=== PATIENT | female | born 1940 | race Caucasian/White ===

== ENCOUNTER 2019-06-24 16:16 | Observation (INO) | payer MEDICARE, OTHER ==
[~2019-06-24] VITALS: Ht 162.6 cm; Wt 81.7 kg
[~2019-06-24 16:16] MED LIST: ACET500 PO; ASPI81EC PO; ATOR20 PO; CLOP75 PO; HYDCHL12.5 PO; HYDCHL25 PO; METO25 PO; OCUVITE EYE +1 EACH; OMEG1CAP30 PO; OMEP40CA12 PO; PANT40
[2019-06-24 16:51] LABS: BASOPHILS ABSOLUTE AUTO 0.02 K/mm3 (0.00-0.23); BASOPHILS PERCENT AUTO 0 % (0-2); EOSINOPHILS ABSOLUTE AUTO 0.14 K/mm3 (0.00-0.68); EOSINOPHILS PERCENT AUTO 2 % (0-6); Hematocrit 37.3 % (33.0-51.0); Hemoglobin 12.6 g/dL (11.5-16.0); IMMATURE GRAN ABSOLUTE AUTO 0.01 K/mm3 (0.00-0.10); IMMATURE GRAN PERCENT AUTO 0 % (0-1); LYMPHOCYTES ABSOLUTE AUTO 1.88 K/mm3 (0.84-5.20); LYMPHOCYTES PERCENT AUTO 28 % (21-46); MONOCYTES ABSOLUTE AUTO 0.66 K/mm3 (0.16-1.47); MONOCYTES PERCENT AUTO 10 % (4-13); Mean Corpuscular HGB 30.8 pg (26.0-34.0); Mean Corpuscular HGB Conc 33.8 g/dL (31.5-36.5); Mean Corpuscular Volume 91 fL (80-100); Mean Platelet Volume 10.3 fL (9.1-12.4); NEUTROPHILS ABSOLUTE AUTO 4.13 K/mm3 (1.96-9.15); NEUTROPHILS PERCENT AUTO 61 % (41-73); Platelet Count 274 K/mm3 (150-400); RDW Coefficient Variation 12.9 % (11.7-14.2); Red Blood Cell Count 4.09 M/mm3 (3.80-5.20); White Blood Cell Count 6.84 K/mm3 (4.00-11.30)
[2019-06-24 17:05] LABS: International Normalized Ratio 0.97; Prothrombin Time Results 10.3 Sec (9.7-11.5)
[2019-06-24 17:15] LABS: Alanine Aminotransfer (ALT/SGP 23 U/L (12-78); Albumin/Globulin Ratio 1.2 (0.8-1.8); Alk Phos 81 U/L (50-136); Anion Gap 10 mmol/L (6-16); Aspartate Aminotrans (AST/SGOT 19 U/L (12-37); Bilirubin, Total 0.3 mg/dL (0.1-1.0); Blood Urea Nitrogen 17 mg/dL (8-24); CO2, Blood 23 mmol/L (21-32); Calcium, Blood 9.3 mg/dL (8.5-10.1); Chloride, Blood 104 mmol/L (98-108); Creatinine, Blood 0.89 mg/dL (0.40-1.00); Globulin, Blood 3.4 g/dL (2.2-4.0); Glomerular Filtration Rate >60 (60-); Glucose, Blood 120 mg/dL (70-99); Sodium, Blood 137 mmol/L (136-145); Total Protein, Blood 7.4 g/dL (6.4-8.2)
--- NOTE | 2019-06-24 21:19 | NUR ---
PT ARRIVED TO UNIT FROM ER VIA GURNEY. TRANSFERED SELF TO BED ON OWN POWER. PT [id number]. NO WEAKNESS NOTED. DENIES NEEDS AT THIS TIME. NPO PER DR ORDERS. Saba PALACIOS INFUSING FROM ER.
--- NOTE | 2019-06-24 22:35 | NUR ---
pt declines staff assist while ambulating. no weakness or defecits noted while ambulating. staff present while walking to bathroom
--- NOTE | 2019-06-25 04:05 | NUR ---
SHIFT SUMMARY OBS PATIENT FOR POSSIBLE TIA. PATIENT HAS SHOWN NO DEFICITS DURING SHIFT. FACE SYMETTRICAL AND NO UNILATERAL WEAKNESS NOTED. PATIENT HAS BEEN CONTINENT OF BLADDER. STBY ASSIST TO RESTROOM, CALLS APPROPRIATLY. NPO PER MD ORDERS. PATIENT ATTEMPTING TO GET EMPLOYEES TO GET HER ORANGE JUICE FREQUENTLY REMINDED PATIENT OF NPO ORDERS. K RIDERS INFUSING SINCE ARRIVAL FROM OR. PATIENT TOLERATING WELL WITH CONCURRENT NS INFUSING. PT RESTING IN BED DENIES FURTHER NEEDS DURING SHIFT. DENIES ANY PAIN.
[2019-06-25 07:06] LABS: BASOPHILS PERCENT AUTO 0 % (0-2); EOSINOPHILS PERCENT AUTO 2 % (0-6); Hemoglobin 11.7 g/dL (11.5-16.0); IMMATURE GRAN ABSOLUTE AUTO 0.01 K/mm3 (0.00-0.10); IMMATURE GRAN PERCENT AUTO 0 % (0-1); LYMPHOCYTES ABSOLUTE AUTO 1.09 K/mm3 (0.84-5.20); LYMPHOCYTES PERCENT AUTO 20 % (21-46); MONOCYTES ABSOLUTE AUTO 0.46 K/mm3 (0.16-1.47); MONOCYTES PERCENT AUTO 9 % (4-13); Mean Corpuscular HGB 29.9 pg (26.0-34.0); Mean Corpuscular HGB Conc 32.5 g/dL (31.5-36.5); Mean Corpuscular Volume 92 fL (80-100); Mean Platelet Volume 10.2 fL (9.1-12.4); NEUTROPHILS ABSOLUTE AUTO 3.68 K/mm3 (1.96-9.15); NEUTROPHILS PERCENT AUTO 69 % (41-73); Platelet Count 243 K/mm3 (150-400); RDW Coefficient Variation 12.9 % (11.7-14.2); RDW Standard Deviation 43.3 fL (35.1-46.3); Red Blood Cell Count 3.91 M/mm3 (3.80-5.20); White Blood Cell Count 5.34 K/mm3 (4.00-11.30)
[2019-06-25 07:28] LABS: Anion Gap 6 mmol/L (6-16); Blood Urea Nitrogen 12 mg/dL (8-24); Bun/Creatinine Ratio 17.2 (12.0-20.0); CO2, Blood 24 mmol/L (21-32); Calcium, Blood 8.3 mg/dL (8.5-10.1); Chloride, Blood 113 mmol/L (98-108); Glomerular Filtration Rate >60 (60-); Glucose, Blood 100 mg/dL (70-99); Sodium, Blood 143 mmol/L (136-145); Troponin I <0.015 ng/mL (0.000-0.040)
[2019-06-25] MEDS ORDERED: ACET325 PO (11:43)
[2019-06-25] MEDS ORDERED: Aggrenox Capsu1 EACH PO (11:43)
[2019-06-25] MEDS ORDERED: FAMO20 PO (11:44)
[2019-06-25] MEDS ORDERED: HYDR10 PO (11:45)
[2019-06-25] MEDS ORDERED: ONDA4ODT MM (11:46)
--- NOTE | 2019-06-25 14:42 | NUR ---
DISCHARGE DISCHARGED HOME AT APPROX 1415. PT AND FAMILY EDUCATED ON AND RECEIVED PRINTED DC INSTRUCTIONS AND VERB AN UNDERSTANDING. NEW RX FA[facility]ED OVER TO [facility] PER PT REQUEST. IV DC'D. PT LEFT WITH ALL PERSONAL BELONGINGS. TELE BOX RETURNED TO PCU.
[2019-08-21] MEDS ORDERED: CLOP75 PO (11:33)
[2019-08-21] MEDS ORDERED: Ocuvite Preser1 EACH PO (11:33)
== END 2019-06-25 14:15 | disposition home or self-care (01) ==
LOC: ER 16:16 → ERHOLD 16:17 → SURS 20:40
PROVIDERS: Physician Assistant; ADMIT Family Medicine
DX: G45.9 Transient cerebral ischemic attack, unspecified (principal); I16.0 Hypertensive urgency; I65.23 Occlusion and stenosis of bilateral carotid arteries; E87.6 Hypokalemia; E78.5 Hyperlipidemia, unspecified; I10 Essential (primary) hypertension; K21.9 Gastro-esophageal reflux disease without esophagitis; R47.1 Dysarthria and anarthria; Z79.82 Long term (current) use of aspirin; Z86.73 Personal history of transient ischemic attack (TIA), and cerebral infarction without residual deficits; Z79.02 Long term (current) use of antithrombotics/antiplatelets; Z79.899 Other long term (current) drug therapy; Z66 Do not resuscitate
CPT/HCPCS: 36415; 70450; 80048; 80053; 83735; 84443; 84484; 85025; 85610; 93005; 93010; 93306; 93880; 96361; 96365; 96366; 97110; 97161; 99285-25; G0378; J3480; J7030

== ENCOUNTER → 2021-02-19 | Outpatient (CLI) | payer MEDICARE, OTHER ==
[~2021-02-19] MED LIST changes: +ACET325 PO; +Aggrenox Capsu1 EACH PO; +FAMO20 PO; +HYDR10 PO; +ONDA4ODT MM; +Ocuvite Preser1 EACH PO
== END | disposition home or self-care (01) ==
LOC: LAB SHORT 09:29 → LAB 09:29
DX: B37.81 Candidal esophagitis (principal)
CPT/HCPCS: 87205

== ENCOUNTER 2022-02-18 17:34 | Emergency (ER) | payer MEDICARE, OTHER ==
[~2022-02-18] VITALS: Ht 162.6 cm; Wt 73.9 kg
[2022-02-18 18:09] LABS: BASOPHILS ABSOLUTE AUTO 0.01 K/mm3 (0.00-0.23); BASOPHILS PERCENT AUTO 0 % (0-2); EOSINOPHILS PERCENT AUTO 0 % (0-6); Hematocrit 34.9 % (33.0-51.0); Hemoglobin 12.3 g/dL (11.5-16.0); IMMATURE GRAN ABSOLUTE AUTO 0.04 K/mm3 (0.00-0.10); IMMATURE GRAN PERCENT AUTO 0 % (0-1); LYMPHOCYTES ABSOLUTE AUTO 0.73 K/mm3 (0.84-5.20); LYMPHOCYTES PERCENT AUTO 6 % (21-46); MONOCYTES ABSOLUTE AUTO 1.27 K/mm3 (0.16-1.47); MONOCYTES PERCENT AUTO 11 % (4-13); Mean Corpuscular HGB 29.4 pg (26.0-34.0); Mean Corpuscular HGB Conc 35.2 g/dL (31.5-36.5); Mean Platelet Volume 10.3 fL (9.1-12.4); NEUTROPHILS ABSOLUTE AUTO 9.37 K/mm3 (1.96-9.15); NEUTROPHILS PERCENT AUTO 82 % (41-73); Platelet Count 239 K/mm3 (150-400); RDW Standard Deviation 39.8 fL (35.1-46.3); Red Blood Cell Count 4.18 M/mm3 (3.80-5.20); White Blood Cell Count 11.42 K/mm3 (4.00-11.30)
[2022-02-18 18:19] LABS: Mean Corpuscular Volume 84 fL (80-100)
[2022-02-18 18:28] LABS: Albumin, Blood 3.6 g/dL (3.4-5.0); Albumin/Globulin Ratio 1.1 (0.8-1.8); Bilirubin, Total 0.9 mg/dL (0.1-1.0); Bun/Creatinine Ratio 22.5 (12.0-20.0); Calcium, Blood 9.3 mg/dL (8.5-10.1); Creatinine, Blood 0.75 mg/dL (0.40-1.00); Globulin, Blood 3.3 g/dL (2.2-4.0); Potassium, Blood 2.9 mmol/L (3.5-5.5); Total Protein, Blood 6.9 g/dL (6.4-8.2)
[2022-02-21] MEDS ORDERED: Bactrim Ds Tab1 EACH PO (18:19)
== END 2022-02-19 00:13 | disposition home or self-care (01) ==
LOC: ER 17:34
PROVIDERS: Physician Assistant
DX: R06.02 Shortness of breath (principal); E87.6 Hypokalemia; I10 Essential (primary) hypertension; E78.5 Hyperlipidemia, unspecified; K21.9 Gastro-esophageal reflux disease without esophagitis; Z86.73 Personal history of transient ischemic attack (TIA), and cerebral infarction without residual deficits; Z79.899 Other long term (current) drug therapy; Z79.02 Long term (current) use of antithrombotics/antiplatelets
CPT/HCPCS: 36415; 71046; 80053; 83880; 84484; 85025; 93005; 93010; 96360; 99284-25; A9270; J7030

== ENCOUNTER 2023-02-24 13:37 | Emergency (ER) | payer OTHER ==
[~2023-02-24] VITALS: Ht 162.6 cm; Wt 79.8 kg
[~2023-02-24 13:37] MED LIST changes: +Bactrim Ds Tab1 EACH PO; +CEPH500 PO
[2023-02-24 14:45] LABS: BASOPHILS ABSOLUTE AUTO 0.02 K/mm3 (0.00-0.23); BASOPHILS PERCENT AUTO 0 % (0-2); EOSINOPHILS ABSOLUTE AUTO 0.14 K/mm3 (0.00-0.68); EOSINOPHILS PERCENT AUTO 2 % (0-6); Hematocrit 39.5 % (33.0-51.0); Hemoglobin 13.3 g/dL (11.5-16.0); IMMATURE GRAN ABSOLUTE AUTO 0.02 K/mm3 (0.00-0.10); IMMATURE GRAN PERCENT AUTO 0 % (0-1); LYMPHOCYTES PERCENT AUTO 19 % (21-46); MONOCYTES ABSOLUTE AUTO 0.49 K/mm3 (0.16-1.47); MONOCYTES PERCENT AUTO 8 % (4-13); Mean Corpuscular HGB 30.4 pg (26.0-34.0); Mean Corpuscular HGB Conc 33.7 g/dL (31.5-36.5); Mean Corpuscular Volume 90 fL (80-100); Mean Platelet Volume 10.2 fL (9.1-12.4); NEUTROPHILS PERCENT AUTO 71 % (41-73); Platelet Count 293 K/mm3 (150-400); RDW Coefficient Variation 12.8 % (11.7-14.2); RDW Standard Deviation 42.5 fL (35.1-46.3); Red Blood Cell Count 4.37 M/mm3 (3.80-5.20); White Blood Cell Count 6.37 K/mm3 (4.00-11.30)
[2023-02-24 15:10] LABS: Albumin, Blood 3.9 g/dL (3.4-5.0); Albumin/Globulin Ratio 1.1 (0.8-1.8); Bilirubin, Total 0.3 mg/dL (0.1-1.0); Bun/Creatinine Ratio 21.7 (12.0-20.0); Calcium, Blood 9.3 mg/dL (8.5-10.1); Creatinine, Blood 0.69 mg/dL (0.40-1.00); Globulin, Blood 3.6 g/dL (2.2-4.0); Total Protein, Blood 7.5 g/dL (6.4-8.2)
[2023-02-24 15:12] LABS: Source, Urine Clean Catch
[2023-02-24 15:24] LABS: Appearance, Urine Hazy (Clear); Bilirubin, Urine Neg (Neg); Blood, Urine Neg (Neg); Color, Urine Yellow (P-Yellow); Glucose Qualitative, Urine Neg (Neg); Ketones, Urine Neg (Neg); Leukocyte Esterase, Urine 3+ (Neg); Nitrite, Urine Neg (Neg); Protein, Urine Neg (Neg); Urobilinogen, Urine NORM (Normal)
[2023-02-24 15:30] LABS: Bacteria Few /hpf; Red Blood Cells, Urine 0-2 /hpf (0-2); Squamous Epithelial Cells Few /hpf (Few); Yeast/Fungi Urine Mod /hpf
[2023-02-24] MEDS ORDERED: CEFP200 PO (15:47)
[2023-02-24 16:00] VITALS: BP 159/82
== END 2023-02-24 16:20 | disposition home or self-care (01) ==
LOC: ER 13:37
PROVIDERS: Emergency Medicine
DX: N39.0 Urinary tract infection, site not specified (principal); I10 Essential (primary) hypertension; E78.5 Hyperlipidemia, unspecified; Z86.73 Personal history of transient ischemic attack (TIA), and cerebral infarction without residual deficits; Z79.02 Long term (current) use of antithrombotics/antiplatelets; Z79.899 Other long term (current) drug therapy; R53.1 Weakness
CPT/HCPCS: 70450; 80053; 81001; 82947; 85025; 87086; 93005; 93010; 99284-25

== ENCOUNTER → 2023-03-29 | Outpatient (CLI) | payer OTHER ==
[~2023-03-29] MED LIST changes: +CEFP200 PO
[2023-03-29 11:12] LABS: Source, Urine Clean Catch
[2023-03-29 13:14] LABS: Appearance, Urine Clear (Clear); Bilirubin, Urine Neg (Neg); Blood, Urine Neg (Neg); Glucose Qualitative, Urine Neg (Neg); Ketones, Urine Neg (Neg); Leukocyte Esterase, Urine 1+ (Neg); Nitrite, Urine Neg (Neg); Protein, Urine Neg (Neg); Urobilinogen, Urine NORM (Normal)
[2023-03-29 13:30] LABS: Color, Urine Pale Yellow (P-Yellow)
[2023-03-29 13:31] LABS: Red Blood Cells, Urine 0-2 /hpf (0-2); Yeast/Fungi Urine Few /hpf
[2023-03-29 13:32] LABS: Bacteria Mod /hpf; Squamous Epithelial Cells Few /hpf (Few)
== END | disposition home or self-care (01) ==
LOC: LAB 11:09 → LAB SHORT 11:09
PROVIDERS: Internal Medicine
DX: N39.0 Urinary tract infection, site not specified (principal)
CPT/HCPCS: 81001; 87086

== ENCOUNTER 2023-04-26 18:13 | Emergency (ER) | payer OTHER ==
[~2023-04-26] VITALS: Ht 162.6 cm; Wt 79.8 kg
[2023-04-26 19:08] LABS: BASOPHILS ABSOLUTE AUTO 0.02 K/mm3 (0.00-0.23); BASOPHILS PERCENT AUTO 0 % (0-2); EOSINOPHILS ABSOLUTE AUTO 0.01 K/mm3 (0.00-0.68); EOSINOPHILS PERCENT AUTO 0 % (0-6); Hematocrit 38.6 % (33.0-51.0); IMMATURE GRAN ABSOLUTE AUTO 0.03 K/mm3 (0.00-0.10); IMMATURE GRAN PERCENT AUTO 0 % (0-1); LYMPHOCYTES ABSOLUTE AUTO 0.44 K/mm3 (0.84-5.20); LYMPHOCYTES PERCENT AUTO 4 % (21-46); MONOCYTES ABSOLUTE AUTO 0.49 K/mm3 (0.16-1.47); MONOCYTES PERCENT AUTO 4 % (4-13); Mean Corpuscular HGB Conc 33.7 g/dL (31.5-36.5); Mean Corpuscular Volume 89 fL (80-100); Mean Platelet Volume 10.6 fL (9.1-12.4); NEUTROPHILS ABSOLUTE AUTO 10.06 K/mm3 (1.96-9.15); NEUTROPHILS PERCENT AUTO 91 % (41-73); Platelet Count 274 K/mm3 (150-400); RDW Coefficient Variation 13.2 % (11.7-14.2); Red Blood Cell Count 4.34 M/mm3 (3.80-5.20); White Blood Cell Count 11.05 K/mm3 (4.00-11.30)
[2023-04-26 19:36] LABS: Albumin/Globulin Ratio 1.2 (0.8-1.8); Bilirubin, Total 0.5 mg/dL (0.1-1.0); Bun/Creatinine Ratio 20.5 (12.0-20.0); Calcium, Blood 9.5 mg/dL (8.5-10.1); Creatinine, Blood 0.78 mg/dL (0.40-1.00); Globulin, Blood 3.3 g/dL (2.2-4.0); Potassium, Blood 3.3 mmol/L (3.5-5.5); Total Protein, Blood 7.3 g/dL (6.4-8.2)
[2023-04-26 19:43] LABS: Influenza A, PCR NEGATIVE (NEGATIVE); Influenza B, PCR NEGATIVE (NEGATIVE); Resp Syncytial Virus, PCR NEGATIVE (NEGATIVE)
[2023-04-26 22:18] LABS: SARS-Cov-2 (COVID-19) PCR, MMC POSITIVE (NEGATIVE)
[2023-04-27 00:34] LABS: Source, Urine Clean Catch
[2023-04-27] MEDS ORDERED: ACET500 PO (00:45)
[2023-04-27] MEDS ORDERED: Ibuprofen600 MG PO (00:45)
[2023-04-27 01:15] VITALS: BP 157/72
[2023-04-27 01:54] LABS: Bilirubin, Urine Neg (Neg); Blood, Urine 2+ (Neg); Glucose Qualitative, Urine Neg (Neg); Ketones, Urine Neg (Neg); Leukocyte Esterase, Urine 1+ (Neg); Nitrite, Urine Neg (Neg); Protein, Urine 2+ (Neg); Urobilinogen, Urine NORM (Normal)
[2023-04-27 02:08] LABS: Appearance, Urine Hazy (Clear); Color, Urine Yellow (P-Yellow)
[2023-04-27 02:09] LABS: Bacteria Many /hpf; Squamous Epithelial Cells Mod /hpf (Few); White Blood Cells, Urine 25-50 /hpf (0-5)
== END 2023-04-27 01:33 | disposition home or self-care (01) ==
LOC: ER 18:13
PROVIDERS: Emergency Medicine; Physician Assistant
DX: U07.1 COVID-19 (principal); E86.0 Dehydration; R53.81 Other malaise; R53.1 Weakness; Z79.899 Other long term (current) drug therapy; I10 Essential (primary) hypertension; E78.5 Hyperlipidemia, unspecified; K21.9 Gastro-esophageal reflux disease without esophagitis
CPT/HCPCS: 0241U; 71046; 80053; 81001; 84484; 85025; 87086; 93005; 93010; 94640; 94664; 96361; 96374; 99285-25; A9270; J1100; J7030

== ENCOUNTER → 2023-07-13 | Outpatient (CLI) | payer OTHER ==
[~2023-07-13] MED LIST changes: +Ibuprofen600 MG PO
[2023-07-13 11:27] LABS: Source, Urine Clean Catch
[2023-07-13 13:40] LABS: Appearance, Urine Hazy (Clear); Bilirubin, Urine Neg (Neg); Blood, Urine 1+ (Neg); Color, Urine Yellow (P-Yellow); Glucose Qualitative, Urine Neg (Neg); Ketones, Urine Neg (Neg); Leukocyte Esterase, Urine 3+ (Neg); Nitrite, Urine Neg (Neg); Protein, Urine Neg (Neg); Specific Gravity, Urine 1.015 (1.003-1.022); Urobilinogen, Urine NORM (Normal)
[2023-07-13 14:06] LABS: Bacteria Many /hpf; Red Blood Cells, Urine 0-2 /hpf (0-2); Squamous Epithelial Cells Mod /hpf (Few); White Blood Cells, Urine TNTC /hpf (0-5); Yeast/Fungi Urine Few /hpf
== END | disposition home or self-care (01) ==
LOC: LAB 09:25 → LAB SHORT 09:25
PROVIDERS: Internal Medicine
DX: N39.0 Urinary tract infection, site not specified (principal)
CPT/HCPCS: 81001; 87086

== ENCOUNTER → 2024-04-12 | Outpatient (CLI) | payer OTHER ==
[2024-04-13 10:46] LABS: Source, Urine Clean Catch
[2024-04-13 10:56] LABS: Appearance, Urine Clear (Clear); Bilirubin, Urine Neg (Neg); Blood, Urine Neg (Neg); Color, Urine Yellow (P-Yellow); Glucose Qualitative, Urine Neg (Neg); Ketones, Urine Neg (Neg); Leukocyte Esterase, Urine Neg (Neg); Nitrite, Urine Neg (Neg); Protein, Urine Neg (Neg); Urobilinogen, Urine NORM (Normal)
== END | disposition home or self-care (01) ==
LOC: LAB 23:40 → LAB SHORT 23:40
PROVIDERS: Internal Medicine
DX: N39.0 Urinary tract infection, site not specified (principal)
CPT/HCPCS: 81003

== ENCOUNTER 2024-04-25 08:56 | Observation (INO) | payer OTHER ==
[~2024-04-25] VITALS: Ht 162.6 cm; Wt 66.4 kg
[2024-04-25 09:42] LABS: BASOPHILS ABSOLUTE AUTO 0.02 K/mm3 (0.00-0.23); BASOPHILS PERCENT AUTO 0 % (0-2); EOSINOPHILS PERCENT AUTO 2 % (0-6); Hematocrit 37.1 % (33.0-51.0); Hemoglobin 12.6 g/dL (11.5-16.0); IMMATURE GRAN ABSOLUTE AUTO 0.02 K/mm3 (0.00-0.10); IMMATURE GRAN PERCENT AUTO 0 % (0-1); LYMPHOCYTES ABSOLUTE AUTO 1.05 K/mm3 (0.84-5.20); LYMPHOCYTES PERCENT AUTO 18 % (21-46); MONOCYTES ABSOLUTE AUTO 0.51 K/mm3 (0.16-1.47); MONOCYTES PERCENT AUTO 9 % (4-13); Mean Corpuscular Volume 88 fL (80-100); Mean Platelet Volume 9.9 fL (9.1-12.4); NEUTROPHILS PERCENT AUTO 70 % (41-73); Platelet Count 257 K/mm3 (150-400); RDW Coefficient Variation 13.1 % (11.7-14.2); RDW Standard Deviation 42.6 fL (35.1-46.3)
[2024-04-25 10:33] LABS: Albumin, Blood 3.9 g/dL (3.4-5.0); Albumin/Globulin Ratio 1.3 (0.8-1.8); Bilirubin, Total 0.4 mg/dL (0.1-1.0); Bun/Creatinine Ratio 23.1 (12.0-20.0); Calcium, Blood 9.2 mg/dL (8.5-10.1); Creatinine, Blood 0.78 mg/dL (0.40-1.00); Magnesium, Blood 1.9 mg/dL (1.6-2.4); Potassium, Blood 3.4 mmol/L (3.5-5.5); Total Protein, Blood 6.9 g/dL (6.4-8.2)
[2024-04-25 10:40] LABS: Source, Urine Clean Catch
[2024-04-25 10:47] LABS: Bilirubin, Urine Neg (Neg); Blood, Urine Neg (Neg); Glucose Qualitative, Urine Neg (Neg); Ketones, Urine Neg (Neg); Leukocyte Esterase, Urine Neg (Neg); Nitrite, Urine Neg (Neg); Protein, Urine Neg (Neg); Urobilinogen, Urine NORM (Normal)
[2024-04-25 10:48] LABS: Appearance, Urine Clear (Clear); Color, Urine Yellow (P-Yellow)
[2024-04-25 11:48] LABS: Influenza A, PCR NEGATIVE (NEGATIVE); Influenza B, PCR NEGATIVE (NEGATIVE); Resp Syncytial Virus, PCR NEGATIVE (NEGATIVE); SARS-Cov-2 (COVID-19) PCR, MMC NEGATIVE (NEGATIVE)
[2024-04-25] MEDS ORDERED: Aspirin 325 MG Tab PO STA (11:49)
[2024-04-25] MEDS ORDERED: Clopidogrel Bisulfate 300 MG Cap PO STA (11:50)
[2024-04-25] MEDS ORDERED: FLU VACC TS2024-25(6MOS UP)/PF 45 MCG/0.5 ML SYRINGE IM SCH (12:00)
[2024-04-25] MEDS ORDERED: Acetaminophen 500 MG Tab PO PRN (12:00)
[2024-04-25] MEDS ORDERED: Atorvastatin 40 MG Tab PO ONE (12:00)
[2024-04-25] MEDS ORDERED: HyDROXyzine HCl 25 MG Tab PO ONE (13:55)
[2024-04-25] MEDS ORDERED: Potassium Chloride 10 Meq Tablet SA PO ONE (14:05)
[2024-04-25] MEDS ORDERED: Metoclopramide HCl 5MG / ML 2ML Vial IV PRN (16:00)
[2024-04-25] MEDS ORDERED: Ondansetron HCl 2 MG / ML 2ML Vial IV PRN (16:00)
--- NOTE | 2024-04-25 19:56 | NUR ---
NEW ADMIT. PATIENT ARRIVED TO ROOM 353 VIA WHEELCHAIR AND 1P TRANSPORT. PATIENT ABLE TO AMBULATE FROM WHEELCHAIR TO BED WITH 1-2 PERSON ASSIST. PATIENT ARRIVED TO ROOM WITH SON AND DAUGHTER IN-LAW AT SIDE. PATIENT HAS 1 PERSONAL BELONGINGS BAG IN CLOSET IN ROOM. THIS RN TO ASSUME CARE.
[2024-04-25 20:02] VITALS: BP 147/74
--- NOTE | 2024-04-26 02:15 | NUR ---
BED SIDE SWALLOW EVAL COMPLETED. PATIENT PASSED WITH NO DIFFICULTIES. PATIENT ADMITTED FOR TIA. NO FACIAL DROOP OR SWALLOWING DIFFICULTIES AT THIS TIME.
--- NOTE | 2024-04-26 02:21 | NUR ---
HOSPITALIST CONTACTED. DR. SAMUEL CONTACTED AND NOTIFIED THAT PATIENT PASSED BED SIDE SWALLOW EVAL WITHOUT DIFFICULTY. ORDERED A HEART HEALTHY DIET FOR PATIENT.
--- NOTE | 2024-04-26 04:58 | NUR ---
SHIFT SUMMARY. PATIENT IS A&OX4 WITH SOME CONFUSION. PATIENT IS PLEASANT AND COOPERATIVE WITH CARE. PATIENT HAD BED SIDE SWALLOW EVAL DONE-SEE PREVIOUS NOTES. PATIENT IS CONTINENT. BED EXIT ALARM ENGAGED-PATIENT IS IMPULSIVE WHEN NEEDING TO USE THE RESTROOM. PATIENT REPORTS THAT WHEN SHE "HAS TO GO SHE HAS TO GO RIGHT THEN OR ELSE I END UP HAVING TO CHANGE CLOTHES". PATIENT HAD A HALF SANDWHICH AND A CUP OF DECAF COFFEE THIS MORNING. PATIENT IS PLEASANT, NOT USING THE CALL LIGHT. PATIENT IS ABLE TO MAKE HER NEEDS KNOWN. PATIENT CONFUSED TONIGHT THINKING THERE WERE PEOPLE IN HER HOUSE-PATIENT EASILY REORIENTED. BED IS LOCKED IN THE LOWEST POSITION WITH CALL LIGHT IN REACH. CARE IS ONGOING.
[2024-04-26 07:10] VITALS: BP 168/96
[2024-04-26] MEDS ORDERED: Aspirin 81 MG Chew PO SCH (08:00)
[2024-04-26] MEDS ORDERED: Clopidogrel Bisulfate 75 MG Tab PO SCH (08:00)
[2024-04-26] MEDS ORDERED: Atorvastatin 40 MG Tab PO SCH (08:00)
[2024-04-26] MEDS ORDERED: Enoxaparin 40 MG/0.4 ML SYR SC SCH (09:00)
[2024-04-26 10:27] LABS: Bun/Creatinine Ratio 19.4 (12.0-20.0); Calcium, Blood 9.5 mg/dL (8.5-10.1); Creatinine, Blood 0.77 mg/dL (0.40-1.00); Potassium, Blood 3.3 mmol/L (3.5-5.5)
[2024-04-26] MEDS ORDERED: Potassium Chloride 10 Meq Tablet SA PO ONE (12:00)
[2024-04-26] MEDS ORDERED: ASPI81CH PO (12:56)
--- NOTE | 2024-04-26 14:16 | NUR ---
VSS, A-Ox4, denies SOB, denies any pain, ambulates with SB assist and walker, on RA. Lungs diminished heart regular, bowel sounds normative, skin intact, neuro intact. Pt can make needs known, call man in hand, bed in lowest position.
== END 2024-04-26 14:17 | disposition home or self-care (01) ==
LOC: ER 08:56 → ERHOLD 08:57 → MEDS 19:48
PROVIDERS: Emergency Medicine; ADMIT Family Medicine
DX: G45.9 Transient cerebral ischemic attack, unspecified (principal); E87.6 Hypokalemia; I10 Essential (primary) hypertension; E78.5 Hyperlipidemia, unspecified; K21.9 Gastro-esophageal reflux disease without esophagitis; Z66 Do not resuscitate; Z79.02 Long term (current) use of antithrombotics/antiplatelets; Z79.899 Other long term (current) drug therapy
CPT/HCPCS: 0241U; 36415; 70450; 70496; 70498; 70551; 71045; 80048; 80053; 81003; 82947; 83735; 83880; 84145; 85025; 93005; 93010; 93306; 96372; 96374-59; 99285-25; A9270; G0378; J1650; J2765; Q9967

== ENCOUNTER 2024-05-12 17:37 | Emergency (ER) | payer OTHER ==
[~2024-05-12] VITALS: Ht 167.6 cm; Wt 72.6 kg
[~2024-05-12 17:37] MED LIST changes: +ASPI81CH PO
[2024-05-12 18:13] LABS: BASOPHILS ABSOLUTE AUTO 0.02 K/mm3 (0.00-0.23); BASOPHILS PERCENT AUTO 0 % (0-2); EOSINOPHILS ABSOLUTE AUTO 0.16 K/mm3 (0.00-0.68); EOSINOPHILS PERCENT AUTO 2 % (0-6); Hematocrit 38.9 % (33.0-51.0); Hemoglobin 13.3 g/dL (11.5-16.0); IMMATURE GRAN ABSOLUTE AUTO 0.02 K/mm3 (0.00-0.10); IMMATURE GRAN PERCENT AUTO 0 % (0-1); LYMPHOCYTES ABSOLUTE AUTO 1.19 K/mm3 (0.84-5.20); LYMPHOCYTES PERCENT AUTO 17 % (21-46); MONOCYTES ABSOLUTE AUTO 0.62 K/mm3 (0.16-1.47); MONOCYTES PERCENT AUTO 9 % (4-13); Mean Corpuscular HGB 30.2 pg (26.0-34.0); Mean Corpuscular HGB Conc 34.2 g/dL (31.5-36.5); Mean Corpuscular Volume 88 fL (80-100); Mean Platelet Volume 9.8 fL (9.1-12.4); NEUTROPHILS ABSOLUTE AUTO 5.07 K/mm3 (1.96-9.15); NEUTROPHILS PERCENT AUTO 72 % (41-73); Platelet Count 313 K/mm3 (150-400); RDW Coefficient Variation 12.8 % (11.7-14.2); RDW Standard Deviation 41.8 fL (35.1-46.3); White Blood Cell Count 7.08 K/mm3 (4.00-11.30)
[2024-05-12 18:46] LABS: Albumin, Blood 3.9 g/dL (3.4-5.0); Albumin/Globulin Ratio 1.2 (0.8-1.8); Bilirubin, Total 0.4 mg/dL (0.1-1.0); Bun/Creatinine Ratio 20.3 (12.0-20.0); Calcium, Blood 9.5 mg/dL (8.5-10.1); Creatinine, Blood 0.84 mg/dL (0.40-1.00); Globulin, Blood 3.2 g/dL (2.2-4.0); Potassium, Blood 3.2 mmol/L (3.5-5.5); Total Protein, Blood 7.1 g/dL (6.4-8.2)
[2024-05-12 19:44] LABS: Source, Urine Clean Catch
[2024-05-12 19:56] LABS: Appearance, Urine Clear (Clear); Bilirubin, Urine Neg (Neg); Blood, Urine Neg (Neg); Color, Urine Yellow (P-Yellow); Glucose Qualitative, Urine Neg (Neg); Ketones, Urine Neg (Neg); Leukocyte Esterase, Urine 3+ (Neg); Nitrite, Urine Neg (Neg); Protein, Urine Neg (Neg); Urobilinogen, Urine NORM (Normal)
[2024-05-12 19:57] LABS: Bacteria Many /hpf; Red Blood Cells, Urine 0-2 /hpf (0-2); Squamous Epithelial Cells Few /hpf (Few); White Blood Cells, Urine 25-50 /hpf (0-5)
[2024-05-12] MEDS ORDERED: CefTRIAXone Sodium 1,000 MG in NS 100 ML IV ONE (20:10)
[2024-05-12] MEDS ORDERED: CEPH500 PO (21:16)
[2024-05-12 22:00] VITALS: BP 150/70
== END 2024-05-12 22:35 | disposition home or self-care (01) ==
LOC: ER 17:37
PROVIDERS: Physician Assistant
DX: G93.40 Encephalopathy, unspecified (principal); N30.00 Acute cystitis without hematuria; I10 Essential (primary) hypertension; E78.5 Hyperlipidemia, unspecified; K21.9 Gastro-esophageal reflux disease without esophagitis; I69.354 Hemiplegia and hemiparesis following cerebral infarction affecting left non-dominant side; Z79.01 Long term (current) use of anticoagulants; Z79.82 Long term (current) use of aspirin; Z79.899 Other long term (current) drug therapy
CPT/HCPCS: 70450; 71045; 80053; 81001; 84484; 85025; 87086; 93005; 93010; 96365; 99285-25; J0696

== ENCOUNTER 2024-06-15 19:08 | Emergency (ER) | payer OTHER ==
[~2024-06-15] VITALS: Ht 157.5 cm; Wt 103.4 kg
[2024-06-15 21:16] LABS: Calcium, Blood 8.4 mg/dL (8.5-10.1); Creatinine, Blood 0.69 mg/dL (0.40-1.00); Magnesium, Blood 1.9 mg/dL (1.6-2.4); Potassium, Blood 3.3 mmol/L (3.5-5.5)
[2024-06-15 21:17] LABS: BASOPHILS ABSOLUTE AUTO 0.02 K/mm3 (0.00-0.23); BASOPHILS PERCENT AUTO 0 % (0-2); EOSINOPHILS ABSOLUTE AUTO 0.23 K/mm3 (0.00-0.68); EOSINOPHILS PERCENT AUTO 4 % (0-6); Hematocrit 36.6 % (33.0-51.0); Hemoglobin 12.3 g/dL (11.5-16.0); IMMATURE GRAN ABSOLUTE AUTO 0.01 K/mm3 (0.00-0.10); IMMATURE GRAN PERCENT AUTO 0 % (0-1); LYMPHOCYTES ABSOLUTE AUTO 1.17 K/mm3 (0.84-5.20); LYMPHOCYTES PERCENT AUTO 18 % (21-46); MONOCYTES PERCENT AUTO 9 % (4-13); Mean Corpuscular HGB 30.8 pg (26.0-34.0); Mean Corpuscular HGB Conc 33.6 g/dL (31.5-36.5); Mean Corpuscular Volume 92 fL (80-100); Mean Platelet Volume 10.2 fL (9.1-12.4); NEUTROPHILS ABSOLUTE AUTO 4.48 K/mm3 (1.96-9.15); NEUTROPHILS PERCENT AUTO 69 % (41-73); Platelet Count 274 K/mm3 (150-400); RDW Coefficient Variation 13.1 % (11.7-14.2); RDW Standard Deviation 44.3 fL (35.1-46.3); White Blood Cell Count 6.51 K/mm3 (4.00-11.30)
[2024-06-15 21:21] LABS: Source, Urine Clean Catch
[2024-06-15 21:25] LABS: Bilirubin, Urine Neg (Neg); Blood, Urine 1+ (Neg); Glucose Qualitative, Urine Neg (Neg); Ketones, Urine Neg (Neg); Leukocyte Esterase, Urine 3+ (Neg); Nitrite, Urine Neg (Neg); Protein, Urine 1+ (Neg); Specific Gravity, Urine 1.025 (1.003-1.022); Urobilinogen, Urine NORM (Normal)
[2024-06-15 21:33] LABS: Appearance, Urine Cloudy (Clear); Color, Urine Pale Yellow (P-Yellow); White Blood Cells, Urine TNTC /hpf (0-5)
[2024-06-15 21:34] LABS: Bacteria Many /hpf; Mucus Light (0-Heavy); Red Blood Cells, Urine 0-2 /hpf (0-2); Squamous Epithelial Cells Many /hpf (Few); Transitional Epithelial Cells Few /hpf (0-Rare); Yeast/Fungi Urine Many /hpf
[2024-06-15] MEDS ORDERED: CefTRIAXone Sodium 1,000 MG in NS 100 ML IV ONE (21:45)
[2024-06-15] MEDS ORDERED: CEFP200 PO (21:48)
[2024-06-15] MEDS ORDERED: Potassium Chloride 20 MEQ TabCR PO ONE (21:50)
[2024-06-15 21:54] VITALS: BP 165/89
== END 2024-06-15 22:00 | disposition home or self-care (01) ==
LOC: ER 19:08
PROVIDERS: Emergency Medicine; Student in an Organized Health Care Education/Training Program
DX: N39.0 Urinary tract infection, site not specified (principal); R41.82 Altered mental status, unspecified; I10 Essential (primary) hypertension; E78.5 Hyperlipidemia, unspecified; K21.9 Gastro-esophageal reflux disease without esophagitis; Z86.73 Personal history of transient ischemic attack (TIA), and cerebral infarction without residual deficits; Z79.82 Long term (current) use of aspirin; Z79.899 Other long term (current) drug therapy; Z79.02 Long term (current) use of antithrombotics/antiplatelets
CPT/HCPCS: 71045; 80048; 81001; 83735; 85025; 87086; 93005; 93010; 96374; 99285-25; A9270; J0696

== ENCOUNTER 2024-09-11 15:35 | Emergency (ER) | payer OTHER ==
[~2024-09-11] VITALS: Ht 162.6 cm; Wt 69.8 kg
[2024-09-11 16:03] LABS: BASOPHILS ABSOLUTE AUTO 0.01 K/mm3 (0.00-0.23); BASOPHILS PERCENT AUTO 0 % (0-2); EOSINOPHILS ABSOLUTE AUTO 0.14 K/mm3 (0.00-0.68); EOSINOPHILS PERCENT AUTO 3 % (0-6); Hematocrit 39.5 % (33.0-51.0); Hemoglobin 13.4 g/dL (11.5-16.0); IMMATURE GRAN ABSOLUTE AUTO 0.01 K/mm3 (0.00-0.10); IMMATURE GRAN PERCENT AUTO 0 % (0-1); LYMPHOCYTES ABSOLUTE AUTO 1.06 K/mm3 (0.84-5.20); LYMPHOCYTES PERCENT AUTO 20 % (21-46); MONOCYTES ABSOLUTE AUTO 0.47 K/mm3 (0.16-1.47); MONOCYTES PERCENT AUTO 9 % (4-13); Mean Corpuscular HGB 29.9 pg (26.0-34.0); Mean Corpuscular HGB Conc 33.9 g/dL (31.5-36.5); Mean Corpuscular Volume 88 fL (80-100); Mean Platelet Volume 10.7 fL (9.1-12.4); NEUTROPHILS ABSOLUTE AUTO 3.54 K/mm3 (1.96-9.15); NEUTROPHILS PERCENT AUTO 68 % (41-73); Platelet Count 295 K/mm3 (150-400); RDW Coefficient Variation 12.8 % (11.7-14.2); RDW Standard Deviation 41.3 fL (35.1-46.3); Red Blood Cell Count 4.48 M/mm3 (3.80-5.20); White Blood Cell Count 5.23 K/mm3 (4.00-11.30)
[2024-09-11 16:32] LABS: Albumin, Blood 4.1 g/dL (3.4-5.0); Albumin/Globulin Ratio 1.2 (0.8-1.8); Bilirubin, Total 0.9 mg/dL (0.1-1.0); Bun/Creatinine Ratio 19.7 (12.0-20.0); Calcium, Blood 9.7 mg/dL (8.5-10.1); Creatinine, Blood 0.97 mg/dL (0.40-1.00); Globulin, Blood 3.4 g/dL (2.2-4.0); Potassium, Blood 3.4 mmol/L (3.5-5.5); Total Protein, Blood 7.5 g/dL (6.4-8.2)
[2024-09-11 17:50] LABS: Appearance, Urine Hazy (Clear); Bilirubin, Urine Neg (Neg); Blood, Urine Neg (Neg); Color, Urine Yellow (P-Yellow); Glucose Qualitative, Urine Neg (Neg); Ketones, Urine 1+ (Neg); Leukocyte Esterase, Urine 1+ (Neg); Nitrite, Urine Neg (Neg); Protein, Urine 1+ (Neg); Source, Urine Voided; Specific Gravity, Urine 1.005 (1.003-1.022); Urobilinogen, Urine NORM (Normal)
[2024-09-11 18:00] VITALS: BP 133/71
[2024-09-11 18:00] LABS: Bacteria Many /hpf; Red Blood Cells, Urine 0-2 /hpf (0-2); Squamous Epithelial Cells Many /hpf (Few)
== END 2024-09-11 19:10 | disposition home or self-care (01) ==
LOC: ER 15:35
PROVIDERS: Emergency Medicine
DX: S09.90XA Unspecified injury of head, initial encounter (principal); I10 Essential (primary) hypertension; E78.5 Hyperlipidemia, unspecified; K21.9 Gastro-esophageal reflux disease without esophagitis; I69.354 Hemiplegia and hemiparesis following cerebral infarction affecting left non-dominant side; Z79.01 Long term (current) use of anticoagulants; Z79.82 Long term (current) use of aspirin; Z79.899 Other long term (current) drug therapy; W18.30XA Fall on same level, unspecified, initial encounter
CPT/HCPCS: 70450; 80053; 81001; 85025; 87086; 99284-25

== ENCOUNTER 2024-10-31 20:03 | Emergency (ER) | payer OTHER ==
[~2024-10-31] VITALS: Ht 167.6 cm; Wt 83.9 kg
[2024-10-31 20:10] VITALS: BP 163/100
[2024-10-31 20:42] LABS: BASOPHILS ABSOLUTE AUTO 0.03 K/mm3 (0.00-0.23); BASOPHILS PERCENT AUTO 1 % (0-2); EOSINOPHILS ABSOLUTE AUTO 0.22 K/mm3 (0.00-0.68); EOSINOPHILS PERCENT AUTO 4 % (0-6); Hematocrit 38.9 % (33.0-51.0); Hemoglobin 12.9 g/dL (11.5-16.0); IMMATURE GRAN ABSOLUTE AUTO 0.01 K/mm3 (0.00-0.10); IMMATURE GRAN PERCENT AUTO 0 % (0-1); LYMPHOCYTES ABSOLUTE AUTO 1.43 K/mm3 (0.84-5.20); LYMPHOCYTES PERCENT AUTO 24 % (21-46); MONOCYTES ABSOLUTE AUTO 0.55 K/mm3 (0.16-1.47); MONOCYTES PERCENT AUTO 9 % (4-13); Mean Corpuscular HGB 29.5 pg (26.0-34.0); Mean Corpuscular HGB Conc 33.2 g/dL (31.5-36.5); Mean Corpuscular Volume 89 fL (80-100); Mean Platelet Volume 10.2 fL (9.1-12.4); NEUTROPHILS ABSOLUTE AUTO 3.82 K/mm3 (1.96-9.15); NEUTROPHILS PERCENT AUTO 63 % (41-73); Platelet Count 346 K/mm3 (150-400); RDW Coefficient Variation 12.9 % (11.7-14.2); RDW Standard Deviation 42.3 fL (35.1-46.3); Red Blood Cell Count 4.38 M/mm3 (3.80-5.20); White Blood Cell Count 6.06 K/mm3 (4.00-11.30)
[2024-10-31 21:11] LABS: Albumin, Blood 4.2 g/dL (3.4-5.0); Albumin/Globulin Ratio 1.6 (0.8-1.8); Bilirubin, Total 0.5 mg/dL (0.1-1.0); Calcium, Blood 9.8 mg/dL (8.5-10.1); Creatinine, Blood 0.79 mg/dL (0.40-1.00); Globulin, Blood 2.7 g/dL (2.2-4.0); Potassium, Blood 3.5 mmol/L (3.5-5.5); Total Protein, Blood 6.9 g/dL (6.4-8.2)
[2024-10-31 21:19] LABS: Source, Urine Clean Catch
[2024-10-31 21:23] LABS: Appearance, Urine Cloudy (Clear); Bilirubin, Urine Neg (Neg); Blood, Urine 4+ (Neg); Color, Urine Yellow (P-Yellow); Glucose Qualitative, Urine Neg (Neg); Ketones, Urine Neg (Neg); Leukocyte Esterase, Urine 3+ (Neg); Nitrite, Urine Neg (Neg); Protein, Urine 3+ (Neg); Specific Gravity, Urine 1.025 (1.003-1.022); Urobilinogen, Urine NORM (Normal)
[2024-10-31 21:30] LABS: Bacteria Few /hpf; White Blood Cells, Urine TNTC /hpf (0-5)
[2024-10-31 21:31] LABS: Yeast/Fungi Urine Mod /hpf
[2024-10-31 21:32] LABS: Squamous Epithelial Cells Mod /hpf (Few)
[2024-10-31 22:50] LABS: Source, Urine Clean Catch
[2024-10-31 22:53] LABS: Appearance, Urine Cloudy (Clear); Bilirubin, Urine Neg (Neg); Blood, Urine 3+ (Neg); Color, Urine Yellow (P-Yellow); Glucose Qualitative, Urine Neg (Neg); Ketones, Urine Neg (Neg); Leukocyte Esterase, Urine 3+ (Neg); Nitrite, Urine Neg (Neg); Protein, Urine 3+ (Neg); Specific Gravity, Urine 1.025 (1.003-1.022); Urobilinogen, Urine NORM (Normal)
[2024-10-31 23:07] LABS: Bacteria Mod /hpf; Red Blood Cells, Urine 0-2 /hpf (0-2); Squamous Epithelial Cells Few /hpf (Few); White Blood Cells, Urine TNTC /hpf (0-5); Yeast/Fungi Urine Few /hpf
[2024-10-31] MEDS ORDERED: PYRIDIUM200 MG PO (23:54)
[2024-10-31] MEDS ORDERED: CEFP200 PO (23:54)
[2024-10-31] MEDS ORDERED: Cefpodoxime Proxetil 200 MG Tab PO ONE (23:55)
[2024-10-31] MEDS ORDERED: Ketorolac Tromethamine 15mg Vial IM ONE (23:55)
[2024-10-31] MEDS ORDERED: Phenazopyridine HCl 100 MG Tab PO ONE (23:55)
[2024-11-05] MEDS ORDERED: Diflucan150 MG PO (09:10)
== END 2024-11-01 00:14 | disposition home or self-care (01) ==
LOC: ER 20:03
PROVIDERS: Student in an Organized Health Care Education/Training Program
DX: N39.0 Urinary tract infection, site not specified (principal); I10 Essential (primary) hypertension; Z79.82 Long term (current) use of aspirin; Z79.899 Other long term (current) drug therapy
CPT/HCPCS: 70450; 80053; 81001; 83690; 85025; 87086; 93005; 93010; 96372; 99284-25; A9270; J1885

== ENCOUNTER → 2024-11-01 | Outpatient (CLI) | payer OTHER ==
[~2024-11-01] MED LIST changes: +Diflucan150 MG PO; +PYRIDIUM200 MG PO
[2024-11-01 16:43] LABS: Adenovirus F 40/41 Not Detected (NOT DETECT); Astrovirus Not Detected (NOT DETECT); Campylobacter Sp Not Detected (NOT DETECT); Cryptosporidium Not Detected (NOT DETECT); Cyclospora Cayetanensis Not Detected (NOT DETECT); E. Coli O157 Not Detected (NOT DETECT); Entamoeba Histolytica Not Detected (NOT DETECT); Enteroaggregative E. coli-EAEC Not Detected (NOT DETECT); Enteropathogenic E. coli-EPEC Not Detected (NOT DETECT); Enterotoxigenic E. coli-ETEC Not Detected (NOT DETECT); Giardia Lamblia Not Detected (NOT DETECT); Norovirus GI/GII Not Detected (NOT DETECT); Plesiomonas Shigelloides Not Detected (NOT DETECT); Salmonella Sp Not Detected (NOT DETECT); Shiga Toxin-prod E. coli-STEC Not Detected (NOT DETECT); Shigella/Enteroin E. coli-EIEC Not Detected (NOT DETECT); Vibrio Cholerae Not Detected (NOT DETECT); Vibrio Sp Not Detected (NOT DETECT); Yersinia Enterocolitica Not Detected (NOT DETECT)
[2024-11-01 16:44] LABS: Rotavirus A Not Detected (NOT DETECT); Sapovirus Not Detected (NOT DETECT)
== END ==
LOC: LAB 10:00 → LAB SHORT 10:00
PROVIDERS: Internal Medicine
DX: R10.2 Pelvic and perineal pain (principal); R19.7 Diarrhea, unspecified; R32 Unspecified urinary incontinence
CPT/HCPCS: 87507

== ENCOUNTER 2024-11-08 02:12 | Day surgery (SDC) | payer OTHER ==
[2024-11-08 08:30] VITALS: BP 170/84
== END 2024-11-08 09:10 | disposition home or self-care (01) ==
LOC: ATC 02:12
DX: R33.9 Retention of urine, unspecified (principal); R32 Unspecified urinary incontinence; I10 Essential (primary) hypertension; E78.5 Hyperlipidemia, unspecified; K21.9 Gastro-esophageal reflux disease without esophagitis; Z79.82 Long term (current) use of aspirin; Z79.899 Other long term (current) drug therapy
CPT/HCPCS: 51702

== ENCOUNTER 2024-11-22 07:31 | Emergency (ER) | payer OTHER ==
[~2024-11-22] VITALS: Ht 157.5 cm; Wt 65.8 kg
[2024-11-22] MEDS ORDERED: AZO D-MANNOSE500 M1 PO (07:53)
[2024-11-22] MEDS ORDERED: ATOR20 PO (07:53)
[2024-11-22] MEDS ORDERED: Aspir 8181 MG PO (07:53)
[2024-11-22] MEDS ORDERED: METO25ER PO (07:53)
[2024-11-22] MEDS ORDERED: Acetaminophen325 M1 PO (07:54)
[2024-11-22] MEDS ORDERED: Norco 5-325 Ta1 EACH PO (07:54)
[2024-11-22] MEDS ORDERED: ANASPAZ0.125 MG PO (07:55)
[2024-11-22] MEDS ORDERED: Ketorolac Tromethamine 15mg Vial IV ONE (09:00)
[2024-11-22 09:41] LABS: Source, Urine Clean Catch
[2024-11-22 09:47] LABS: Appearance, Urine Hazy (Clear); Bilirubin, Urine Neg (Neg); Blood, Urine 1+ (Neg); Glucose Qualitative, Urine Neg (Neg); Ketones, Urine Neg (Neg); Leukocyte Esterase, Urine 2+ (Neg); Nitrite, Urine Neg (Neg); Protein, Urine 3+ (Neg); Urobilinogen, Urine NORM (Normal)
[2024-11-22 09:48] LABS: Color, Urine Pale Yellow (P-Yellow)
[2024-11-22 09:49] LABS: BASOPHILS ABSOLUTE AUTO 0.02 K/mm3 (0.00-0.23); BASOPHILS PERCENT AUTO 0 % (0-2); EOSINOPHILS ABSOLUTE AUTO 0.11 K/mm3 (0.00-0.68); EOSINOPHILS PERCENT AUTO 2 % (0-6); Hematocrit 33.8 % (33.0-51.0); Hemoglobin 11.2 g/dL (11.5-16.0); IMMATURE GRAN ABSOLUTE AUTO 0.02 K/mm3 (0.00-0.10); IMMATURE GRAN PERCENT AUTO 0 % (0-1); LYMPHOCYTES ABSOLUTE AUTO 0.93 K/mm3 (0.84-5.20); LYMPHOCYTES PERCENT AUTO 16 % (21-46); MONOCYTES ABSOLUTE AUTO 0.45 K/mm3 (0.16-1.47); MONOCYTES PERCENT AUTO 8 % (4-13); Mean Corpuscular HGB Conc 33.1 g/dL (31.5-36.5); Mean Corpuscular Volume 88 fL (80-100); Mean Platelet Volume 9.6 fL (9.1-12.4); NEUTROPHILS PERCENT AUTO 73 % (41-73); Platelet Count 309 K/mm3 (150-400); RDW Coefficient Variation 13.5 % (11.7-14.2); RDW Standard Deviation 43.1 fL (35.1-46.3); Red Blood Cell Count 3.86 M/mm3 (3.80-5.20); White Blood Cell Count 5.73 K/mm3 (4.00-11.30)
[2024-11-22 09:55] LABS: Squamous Epithelial Cells Many /hpf (Few); White Blood Cells, Urine 50-100 /hpf (0-5)
[2024-11-22 09:56] LABS: Bacteria Many /hpf
[2024-11-22 10:14] LABS: Albumin, Blood 3.3 g/dL (3.4-5.0); Albumin/Globulin Ratio 1.1 (0.8-1.8); Bilirubin, Total 0.6 mg/dL (0.1-1.0); Bun/Creatinine Ratio 16.9 (12.0-20.0); Calcium, Blood 9.2 mg/dL (8.5-10.1); Creatinine, Blood 0.65 mg/dL (0.40-1.00); Globulin, Blood 2.9 g/dL (2.2-4.0); Potassium, Blood 3.1 mmol/L (3.5-5.5); Total Protein, Blood 6.2 g/dL (6.4-8.2)
[2024-11-22] MEDS ORDERED: Ciprofloxacin 500 MG Tab PO ONE (10:20)
[2024-11-22] MEDS ORDERED: Potassium Chloride 20 MEQ TabCR PO ONE (10:40)
[2024-11-22] MEDS ORDERED: CIPR500 PO (10:49)
[2024-11-22 10:55] VITALS: BP 147/650
== END 2024-11-22 11:23 | disposition home or self-care (01) ==
LOC: ER 07:31
PROVIDERS: Student in an Organized Health Care Education/Training Program
DX: N39.0 Urinary tract infection, site not specified (principal); K21.9 Gastro-esophageal reflux disease without esophagitis; I10 Essential (primary) hypertension; E78.5 Hyperlipidemia, unspecified; Z86.73 Personal history of transient ischemic attack (TIA), and cerebral infarction without residual deficits; Z79.82 Long term (current) use of aspirin; Z79.02 Long term (current) use of antithrombotics/antiplatelets; Z79.899 Other long term (current) drug therapy
CPT/HCPCS: 51702; 51798; 74177; 80053; 81001; 85025; A9270; J1885; P9612; Q9967

== ENCOUNTER 2024-11-22 19:09 | Inpatient (IN) | payer OTHER ==
[~2024-11-22] VITALS: Ht 152.4 cm; Wt 65.6 kg
[~2024-11-22 19:09] MED LIST changes: +ANASPAZ0.125 MG PO; +AZO D-MANNOSE500 M1 PO; +Acetaminophen325 M1 PO; +Aspir 8181 MG PO; +CIPR500 PO; +METO25ER PO; +Norco 5-325 Ta1 EACH PO
[2024-11-22] MEDS ORDERED: Haloperidol Lactate Inj. 5 MG/ML Injection IV ONE ×2 (19:20→20:00)
[2024-11-22 19:39] LABS: BASOPHILS ABSOLUTE AUTO 0.02 K/mm3 (0.00-0.23); BASOPHILS PERCENT AUTO 0 % (0-2); EOSINOPHILS ABSOLUTE AUTO 0.15 K/mm3 (0.00-0.68); EOSINOPHILS PERCENT AUTO 2 % (0-6); Hematocrit 35.2 % (33.0-51.0); Hemoglobin 11.6 g/dL (11.5-16.0); IMMATURE GRAN ABSOLUTE AUTO 0.03 K/mm3 (0.00-0.10); IMMATURE GRAN PERCENT AUTO 0 % (0-1); LYMPHOCYTES ABSOLUTE AUTO 1.01 K/mm3 (0.84-5.20); LYMPHOCYTES PERCENT AUTO 15 % (21-46); MONOCYTES ABSOLUTE AUTO 0.68 K/mm3 (0.16-1.47); MONOCYTES PERCENT AUTO 10 % (4-13); Mean Corpuscular HGB 29.2 pg (26.0-34.0); Mean Corpuscular Volume 89 fL (80-100); Mean Platelet Volume 9.8 fL (9.1-12.4); NEUTROPHILS ABSOLUTE AUTO 4.81 K/mm3 (1.96-9.15); NEUTROPHILS PERCENT AUTO 72 % (41-73); Platelet Count 361 K/mm3 (150-400); RDW Coefficient Variation 13.5 % (11.7-14.2); RDW Standard Deviation 44.1 fL (35.1-46.3); Red Blood Cell Count 3.97 M/mm3 (3.80-5.20)
[2024-11-22 20:04] LABS: Albumin, Blood 3.5 g/dL (3.4-5.0); Albumin/Globulin Ratio 1.1 (0.8-1.8); Bilirubin, Total 0.5 mg/dL (0.1-1.0); Bun/Creatinine Ratio 19.2 (12.0-20.0); Calcium, Blood 9.1 mg/dL (8.5-10.1); Creatinine, Blood 0.84 mg/dL (0.40-1.00); Globulin, Blood 3.2 g/dL (2.2-4.0); Potassium, Blood 3.9 mmol/L (3.5-5.5); Total Protein, Blood 6.7 g/dL (6.4-8.2)
[2024-11-22] MEDS ORDERED: CefTRIAXone Sodium 1,000 MG in NS 100 ML IV ONE (21:25)
[2024-11-22] MEDS ORDERED: Ondansetron HCl 2 MG / ML 2ML Vial IV PRN (22:35)
[2024-11-22] MEDS ORDERED: NS 1,000 ML IV SCH (22:35)
[2024-11-22] MEDS ORDERED: Acetaminophen 325 MG TABLET PO PRN (22:35)
[2024-11-22] MEDS ORDERED: Enoxaparin 40 MG/0.4 ML SYR SC SCH (23:00)
[2024-11-23 00:14] VITALS: BP 148/70
[2024-11-23 04:19] VITALS: BP 152/75
--- NOTE | 2024-11-23 05:06 | NUR ---
PT A&O X2 DID NOT KNOW DATE OR PRESIDENT. PT DENIED PAIN, ONLY WANTED TO LIE ON RIGHT SIDE. GARCIA CATH BAG CHANGED TO BSD FROM LEG BAG. PT NPO CURRENTLY. DID ANSWER A COUPLE OF QUESTIONS AFTER ARRIVAL FROM ED, FAMILY WAS AT BEDSIDE TO ANSWER QUESTIONS, ALTHOUGH THEY DID NOT KNOW MEDS. FAMILY ALSO STATED SHE HAS PULLED OUT GARCIA X2 IN PAST 2DAYS. CHECKED OFTEN THROUGHOUT NIGHT. VS WNL, IVF STARTED LATE IN NIGHT D/T PULLING AT ITEMS LIKE TELE, GOWN, AND AT ONE POINT AFTER IVF STARTED SHE DID TRY TO REPROGRAM IV PUMP, PUMP LOCKED AFTER THAT. REMAINS ON IVABX, AND WILL HAVE PALLATIVE CONSULT TODAY, FAMILY WILL ALSO BRING IN POLST/ LIVING WILL.
[2024-11-23 05:35] LABS: BASOPHILS ABSOLUTE AUTO 0.02 K/mm3 (0.00-0.23); BASOPHILS PERCENT AUTO 0 % (0-2); EOSINOPHILS ABSOLUTE AUTO 0.17 K/mm3 (0.00-0.68); EOSINOPHILS PERCENT AUTO 3 % (0-6); Hematocrit 32.1 % (33.0-51.0); Hemoglobin 10.6 g/dL (11.5-16.0); IMMATURE GRAN ABSOLUTE AUTO 0.02 K/mm3 (0.00-0.10); IMMATURE GRAN PERCENT AUTO 0 % (0-1); LYMPHOCYTES ABSOLUTE AUTO 0.79 K/mm3 (0.84-5.20); LYMPHOCYTES PERCENT AUTO 15 % (21-46); MONOCYTES ABSOLUTE AUTO 0.57 K/mm3 (0.16-1.47); MONOCYTES PERCENT AUTO 11 % (4-13); Mean Corpuscular Volume 88 fL (80-100); Mean Platelet Volume 9.8 fL (9.1-12.4); NEUTROPHILS ABSOLUTE AUTO 3.59 K/mm3 (1.96-9.15); NEUTROPHILS PERCENT AUTO 70 % (41-73); Platelet Count 308 K/mm3 (150-400); RDW Coefficient Variation 13.4 % (11.7-14.2); RDW Standard Deviation 43.4 fL (35.1-46.3); Red Blood Cell Count 3.65 M/mm3 (3.80-5.20); White Blood Cell Count 5.16 K/mm3 (4.00-11.30)
[2024-11-23 05:58] LABS: Albumin/Globulin Ratio 1.1 (0.8-1.8); Bilirubin, Total 0.4 mg/dL (0.1-1.0); Calcium, Blood 8.6 mg/dL (8.5-10.1); Creatinine, Blood 0.65 mg/dL (0.40-1.00); Globulin, Blood 2.7 g/dL (2.2-4.0); Potassium, Blood 3.3 mmol/L (3.5-5.5); Total Protein, Blood 5.7 g/dL (6.4-8.2)
[2024-11-23] MEDS ORDERED: Potassium Chloride 20 MEQ TabCR PO ONE ×2 (07:00→09:35)
[2024-11-23] MEDS ORDERED: Potassium Chl 20MEQ/Water100ML 100 ML IV STA (07:33)
[2024-11-23 08:00] VITALS: BP 144/75
[2024-11-23] MEDS ORDERED: Lactobacil 2-S.Thermo-Bifido 1 1 Cap PO SCH (09:00)
[2024-11-23] MEDS ORDERED: Atorvastatin 10 MG Tab PO SCH (09:00)
[2024-11-23] MEDS ORDERED: Metoprolol Succinate 25 MG TABCR PO SCH (09:00)
[2024-11-23] MEDS ORDERED: Clopidogrel Bisulfate 75 MG Tab PO SCH (09:00)
--- NOTE | 2024-11-23 09:38 | NUR ---
DR STOCK IN ROOM. RE POTASSIUM. OKAY TO GIVE PO INSTEAD OF IV. PT ABLE TO EAT. CANCELLED IV. CALLED PHA. PO K+ TIMED OUT. OKAY REORDER PER DR GUZMAN. DONE
--- NOTE | 2024-11-23 13:53 | NUR ---
PALLIATIVE CARE NOTE: POLST ON FILE INDICATED PT IS DNR, LIMITED. NOTIFIED DR. GUZMAN, WAS AGREEABLE TO CHANGING CODE STATUS TO DNR. CODE STATUS UPDATED.
[2024-11-23 14:42] VITALS: BP 146/69
[2024-11-23 19:20] VITALS: BP 128/54
[2024-11-23] MEDS ORDERED: CefTRIAXone Sodium 1,000 MG in NS 100 ML IV SCH (21:00)
--- NOTE | 2024-11-24 03:58 | NUR ---
Mixed Crop Farmer Shift Summary Pt admitted for Acute encephalopathy and UTI. Alert and oriented to self. Telemetry shows normal sinus rhythm at 95. Mendes Cath in place and is patent draining yellow colored urine. Patient has been attempting to get out of bed and has been pulling at her IV, Tele, and Mendes Catheter with out being redirectable. Mitts were ordered and applied with no improvement. Patient telling staff to go away when help is being provided. Soft restraints were used to help keep the patient in bed and to prevent pulling on lines and have been effective. Patient resting quietly after 0300. Call light within reach. Bed rails up x3. Bed in lowest position for safety. Will continue to monitor.
--- NOTE | 2024-11-24 05:06 | NUR ---
NURSE REVIEW OF STUDENT CARE AND DOCUMENTATION. I HAVE WORKED ALONG SIDE OF AND WITH STUDENT AND READ AND AGREE WITH HER DOCUMENTAION.
[2024-11-24 06:01] VITALS: BP 157/84
[2024-11-24 06:11] LABS: BASOPHILS ABSOLUTE AUTO 0.02 K/mm3 (0.00-0.23); BASOPHILS PERCENT AUTO 0 % (0-2); EOSINOPHILS ABSOLUTE AUTO 0.24 K/mm3 (0.00-0.68); EOSINOPHILS PERCENT AUTO 4 % (0-6); Hematocrit 35.4 % (33.0-51.0); Hemoglobin 11.5 g/dL (11.5-16.0); IMMATURE GRAN ABSOLUTE AUTO 0.01 K/mm3 (0.00-0.10); IMMATURE GRAN PERCENT AUTO 0 % (0-1); LYMPHOCYTES ABSOLUTE AUTO 0.83 K/mm3 (0.84-5.20); LYMPHOCYTES PERCENT AUTO 14 % (21-46); MONOCYTES ABSOLUTE AUTO 0.53 K/mm3 (0.16-1.47); MONOCYTES PERCENT AUTO 9 % (4-13); Mean Corpuscular HGB 28.9 pg (26.0-34.0); Mean Corpuscular HGB Conc 32.5 g/dL (31.5-36.5); Mean Corpuscular Volume 89 fL (80-100); NEUTROPHILS PERCENT AUTO 74 % (41-73); Platelet Count 352 K/mm3 (150-400); RDW Coefficient Variation 13.4 % (11.7-14.2); RDW Standard Deviation 43.5 fL (35.1-46.3); Red Blood Cell Count 3.98 M/mm3 (3.80-5.20); White Blood Cell Count 6.13 K/mm3 (4.00-11.30)
[2024-11-24 06:37] LABS: Albumin, Blood 3.4 g/dL (3.4-5.0); Albumin/Globulin Ratio 1.2 (0.8-1.8); Bilirubin, Total 0.6 mg/dL (0.1-1.0); Bun/Creatinine Ratio 9.4 (12.0-20.0); Calcium, Blood 9.2 mg/dL (8.5-10.1); Creatinine, Blood 0.64 mg/dL (0.40-1.00); Globulin, Blood 2.9 g/dL (2.2-4.0); Potassium, Blood 3.3 mmol/L (3.5-5.5); Total Protein, Blood 6.3 g/dL (6.4-8.2)
[2024-11-24] MEDS ORDERED: Potassium Chloride 20 MEQ TabCR PO SCH (07:20)
[2024-11-24 07:25] VITALS: BP 131/84
[2024-11-24] MEDS ORDERED: OLANZapine ODT 10 MG Tab PO PRN (10:30)
[2024-11-24] MEDS ORDERED: Cefpodoxime Proxetil 200 MG Tab PO SCH (11:00)
[2024-11-24 15:32] VITALS: BP 134/63
--- NOTE | 2024-11-24 16:42 | NUR ---
SHIFT SUMMARY PT AOX1, FAMILY AT THE BS ALL SHIFT. 1 ASSIST WITH THE FWW AND GB. UP IN THE CHAIR MOST OF THE DAY AND TOLERATING IT WELL. RESTRAINTS DISCONTINUED THIS AM. TELE DISCONTINUED. REPOSITIONED IN THE CHAIR, UP FOR WALKS IN THE HALLWAYS TODAY. TOLERATED IT WELL. NO IV ORDER IN PLACE. NO ACUTE COMPLAINTS BY THE PT. CALL LIGHT WITHIN REACH, CA ON. WILL REPORT TO ONCOMING NURSE.
[2024-11-24] MEDS ORDERED: OLANZapine 5 MG Tab PO ONE (18:10)
[2024-11-24 19:27] VITALS: BP 123/53
[2024-11-25 03:17] VITALS: BP 137/70
--- NOTE | 2024-11-25 03:56 | NUR ---
Electric Meter Repairer Apprentice Shift Summary Patient admitted for encephalopathy and UTI. Patient alert and oriented x1, to self. Patient was struggling to take medications whole with water this shift due to being lethargic, she was able to take them with applesauce although she did chew them before swallowing. Continues to be withdrawn. Difficult to engage in care with staff, often telling staff to leave. Resting in recliner chair sleeping intermittenly. Mendes draining em colored urine. Chair alarm on for safety. Call light within reach. intermitten sitter with patient. Will continue to monitor. Patient resting quietly at this time.
--- NOTE | 2024-11-25 04:12 | NUR ---
NURSE STUDENT PRECEPTOR NOTE. I HAVE WORKED ALONG SIDE OF/WITH STUDENT, AND READ AND AGREE WITH HER DOCUMENTATION.
[2024-11-25 05:26] LABS: BASOPHILS ABSOLUTE AUTO 0.03 K/mm3 (0.00-0.23); BASOPHILS PERCENT AUTO 1 % (0-2); EOSINOPHILS ABSOLUTE AUTO 0.28 K/mm3 (0.00-0.68); EOSINOPHILS PERCENT AUTO 5 % (0-6); Hematocrit 35.1 % (33.0-51.0); Hemoglobin 11.5 g/dL (11.5-16.0); IMMATURE GRAN ABSOLUTE AUTO 0.03 K/mm3 (0.00-0.10); IMMATURE GRAN PERCENT AUTO 1 % (0-1); LYMPHOCYTES ABSOLUTE AUTO 1.15 K/mm3 (0.84-5.20); LYMPHOCYTES PERCENT AUTO 20 % (21-46); MONOCYTES ABSOLUTE AUTO 0.53 K/mm3 (0.16-1.47); MONOCYTES PERCENT AUTO 9 % (4-13); Mean Corpuscular HGB 28.8 pg (26.0-34.0); Mean Corpuscular HGB Conc 32.8 g/dL (31.5-36.5); Mean Corpuscular Volume 88 fL (80-100); NEUTROPHILS ABSOLUTE AUTO 3.83 K/mm3 (1.96-9.15); NEUTROPHILS PERCENT AUTO 65 % (41-73); Platelet Count 336 K/mm3 (150-400); RDW Coefficient Variation 13.7 % (11.7-14.2); RDW Standard Deviation 44.5 fL (35.1-46.3); Red Blood Cell Count 3.99 M/mm3 (3.80-5.20); White Blood Cell Count 5.85 K/mm3 (4.00-11.30)
[2024-11-25 06:08] LABS: Albumin, Blood 3.1 g/dL (3.4-5.0); Bilirubin, Total 0.4 mg/dL (0.1-1.0); Bun/Creatinine Ratio 15.4 (12.0-20.0); Calcium, Blood 9.1 mg/dL (8.5-10.1); Creatinine, Blood 0.71 mg/dL (0.40-1.00); Potassium, Blood 4.5 mmol/L (3.5-5.5); Total Protein, Blood 6.1 g/dL (6.4-8.2)
[2024-11-25 08:19] VITALS: BP 117/71
--- NOTE | 2024-11-25 09:52 | NUR ---
NOTE: SPOKE WITH PT'S PRIMARY CARE PROVIDER ON THE PHONE, SHE CONTACTED THIS NURSE AND ADVISED THE GARCIA STAY IN PLACE UNTIL SEEN OUTPT FOR HER PROLAPSED BLADDER AND UTERUS. DR. GUZMAN, HER HOSPITALIST TODAY, WAS NOTIFIED AND UPATED ON THE CONVERSATION.
--- NOTE | 2024-11-25 12:14 | NUR ---
NOTE: SPOKE WITH PT'S PCP AND PER HER REQUEST, PT TO BE ON ASA AND PLAVIX DUE TO REOCCURRING TIA'S. THIS MESSAGE WAS RELAYED TO THE HOSPITALIST AND HE SAID HE WOULD RESTART THE MEDICATION.
--- NOTE | 2024-11-25 17:23 | NUR ---
SHIFT SUMMARY PT AOX2, 1 ASSIST WITH THE FWW AND GB. SHE HAS WALKED THE HALLS THIS SHIFT, UP IN THE CHAIR IF NOT WALKING. GARCIA IN PLACE AND DRAINING. FAMILY AT THE BS THROUGHOUT THE SHIFT. NO ACUTE COMPLAINTS BY THE PT. 1:1 SITTER PRESENT. CALL LIGHT WITHIN REACH, BED LOCKED AND IN THE LOWEST POSITION. WILL REPORT TO ONCOMING NURSE.
[2024-11-25 19:21] VITALS: BP 112/57
[2024-11-25] MEDS ORDERED: Nitrofurantoin/Nitrofuran Mac 100 MG Cap PO SCH (21:00)
--- NOTE | 2024-11-26 04:05 | NUR ---
SUPERVISOR RESEARCH KENNEL SHIFT SUMMARY PATIENT ADMITTED FOR ACUTE ENCEPHALOPATHY. ALERT AND ORIENTED X2. GARCIA IN PLACE DRAINING THOR COLORED URINE. PATIENT TOOK MEDICATIONS EASILY WITH APPLE SAUCE. [address] ON [address]. PATIENT RESTING QUIETLY IN RECLINER WITH FEW INTERUPTIONS. FOOT REST UP FOR COMFORT AND CHAIR ALARM IN PLACE FOR SAFETY. CALL LIGHT WITHIN REACH. WILL CONTINUE TO MONITOR.
[2024-11-26 04:21] VITALS: BP 143/77
--- NOTE | 2024-11-26 04:54 | NUR ---
NURSE STUDENT PRECEPTOR NOTE I HAVE WORKED ALONG SIDE OF AND WITH STUDENT AND HAVE READ AND AGREE WITH HER DOCUMENTATION
[2024-11-26 07:07] LABS: BASOPHILS ABSOLUTE AUTO 0.01 K/mm3 (0.00-0.23); BASOPHILS PERCENT AUTO 0 % (0-2); EOSINOPHILS ABSOLUTE AUTO 0.24 K/mm3 (0.00-0.68); EOSINOPHILS PERCENT AUTO 4 % (0-6); Hematocrit 37.1 % (33.0-51.0); Hemoglobin 11.9 g/dL (11.5-16.0); IMMATURE GRAN ABSOLUTE AUTO 0.01 K/mm3 (0.00-0.10); IMMATURE GRAN PERCENT AUTO 0 % (0-1); LYMPHOCYTES ABSOLUTE AUTO 1.02 K/mm3 (0.84-5.20); LYMPHOCYTES PERCENT AUTO 17 % (21-46); MONOCYTES ABSOLUTE AUTO 0.57 K/mm3 (0.16-1.47); MONOCYTES PERCENT AUTO 10 % (4-13); Mean Corpuscular HGB 29.3 pg (26.0-34.0); Mean Corpuscular HGB Conc 32.1 g/dL (31.5-36.5); Mean Corpuscular Volume 91 fL (80-100); Mean Platelet Volume 9.9 fL (9.1-12.4); NEUTROPHILS ABSOLUTE AUTO 4.12 K/mm3 (1.96-9.15); NEUTROPHILS PERCENT AUTO 69 % (41-73); Platelet Count 365 K/mm3 (150-400); RDW Coefficient Variation 14.1 % (11.7-14.2); RDW Standard Deviation 47.8 fL (35.1-46.3); Red Blood Cell Count 4.06 M/mm3 (3.80-5.20); White Blood Cell Count 5.97 K/mm3 (4.00-11.30)
[2024-11-26 07:14] VITALS: BP 121/58
[2024-11-26 07:40] LABS: Albumin, Blood 3.3 g/dL (3.4-5.0); Albumin/Globulin Ratio 1.1 (0.8-1.8); Bilirubin, Total 0.4 mg/dL (0.1-1.0); Bun/Creatinine Ratio 24.1 (12.0-20.0); Calcium, Blood 9.2 mg/dL (8.5-10.1); Creatinine, Blood 0.79 mg/dL (0.40-1.00); Globulin, Blood 3.1 g/dL (2.2-4.0); Potassium, Blood 4.1 mmol/L (3.5-5.5); Total Protein, Blood 6.4 g/dL (6.4-8.2)
[2024-11-26] MEDS ORDERED: Aspirin 81 MG Chew PO SCH (09:00)
[2024-11-26] MEDS ORDERED: NITR100CA PO (12:19)
[2024-11-26] MEDS ORDERED: CRANBERRY500 M1 PO (12:21)
[2024-11-26] MEDS ORDERED: VISBIOME 112.51 EACH PO (12:21)
--- NOTE | 2024-11-26 12:44 | NUR ---
DISCHARGE SUMMARY PT DISCHARGE BACK TO [facility] ON 11/26/24 @ 1240. HOME HEALTH SERVICES ORDERED FOR CHRONIC INDWELLING CATHETER - LEG BAG IN PLACE, PROIVDER EXTRA DRAINAGE BAG FOR TONIGHT. PT CHILDREN PRESENT AT TIME OF DISCHARGE, DISCHARGE PACKET REVIEWED WITH PT AND PT FAMILY/POA. NO IV ACCESS TO BE REMOVED. FAMILY [id number] HAVING ALL PT PERSONAL ITEMS. NEW RX FAXED TO [facility] PER FAMILY REQUEST. PT WHEELED DOWN TO PRIVATE VEHICLE BY MARKETING MANAGER, FAMILY PRESENT AND PROVIDING PT WITH RIDE BACK TO [facility].
== END 2024-11-26 12:42 | disposition home health service (06) | DRG 690 ==
LOC: ER 19:09 → MEDS 22:30 → ERHOLD 22:30 → MEDS 11-23 00:15
PROVIDERS: Emergency Medicine; Family Medicine; Student in an Organized Health Care Education/Training Program; ADMIT Internal Medicine
PROC: 0T9B70Z Drainage of Bladder with Drainage Device, Via Natural or Artificial Opening (ICD-10-PCS; principal; 2024-11-26)
DX: N39.0 Urinary tract infection, site not specified (principal); I69.854 Hemiplegia and hemiparesis following other cerebrovascular disease affecting left non-dominant side; Z66 Do not resuscitate; R45.1 Restlessness and agitation; I10 Essential (primary) hypertension; E78.5 Hyperlipidemia, unspecified; K21.9 Gastro-esophageal reflux disease without esophagitis; M81.0 Age-related osteoporosis without current pathological fracture; E86.0 Dehydration; B96.89 Other specified bacterial agents as the cause of diseases classified elsewhere; E87.6 Hypokalemia; R33.9 Retention of urine, unspecified; Z98.890 Other specified postprocedural states; Z79.899 Other long term (current) drug therapy; Z79.82 Long term (current) use of aspirin; Z79.891 Long term (current) use of opiate analgesic; Z79.2 Long term (current) use of antibiotics; W19.XXXA Unspecified fall, initial encounter; Y92.009 Unspecified place in unspecified non-institutional (private) residence as the place of occurrence of the external cause; Z79.02 Long term (current) use of antithrombotics/antiplatelets
CPT/HCPCS: 36415; 51702; 51798; 70450; 72125; 73502; 74177; 80053; 81001; 82550; 83605; 83880; 85025; 87077; 87086; 87186; 93005; 93010; 96374; 96374-59; 96375; 97110; 97116; 97161; 99284-25; 99285-25; A9270; J0696; J1630; J1650; J1885; J7030; P9612; Q9967

== ENCOUNTER 2024-12-10 23:30 | Emergency (ER) | payer OTHER ==
[~2024-12-10] VITALS: Ht 162.6 cm; Wt 63.5 kg
[~2024-12-10 23:30] MED LIST changes: +CRANBERRY500 M1 PO; +NITR100CA PO; +VISBIOME 112.51 EACH PO
[2024-12-10] MEDS ORDERED: LORazepam 1 MG Tab PO ONE (23:45)
[2024-12-11 00:32] LABS: BASOPHILS ABSOLUTE AUTO 0.04 K/mm3 (0.00-0.23); BASOPHILS PERCENT AUTO 1 % (0-2); EOSINOPHILS ABSOLUTE AUTO 0.21 K/mm3 (0.00-0.68); EOSINOPHILS PERCENT AUTO 4 % (0-6); Hemoglobin 11.2 g/dL (11.5-16.0); IMMATURE GRAN ABSOLUTE AUTO 0.07 K/mm3 (0.00-0.10); IMMATURE GRAN PERCENT AUTO 1 % (0-1); LYMPHOCYTES ABSOLUTE AUTO 1.26 K/mm3 (0.84-5.20); LYMPHOCYTES PERCENT AUTO 21 % (21-46); MONOCYTES ABSOLUTE AUTO 0.53 K/mm3 (0.16-1.47); MONOCYTES PERCENT AUTO 9 % (4-13); Mean Corpuscular HGB 29.9 pg (26.0-34.0); Mean Corpuscular HGB Conc 33.9 g/dL (31.5-36.5); Mean Corpuscular Volume 88 fL (80-100); Mean Platelet Volume 9.9 fL (9.1-12.4); NEUTROPHILS ABSOLUTE AUTO 3.84 K/mm3 (1.96-9.15); NEUTROPHILS PERCENT AUTO 65 % (41-73); Platelet Count 291 K/mm3 (150-400); RDW Coefficient Variation 14.6 % (11.7-14.2); RDW Standard Deviation 46.9 fL (35.1-46.3); Red Blood Cell Count 3.74 M/mm3 (3.80-5.20); White Blood Cell Count 5.95 K/mm3 (4.00-11.30)
[2024-12-11 00:48] LABS: Albumin, Blood 3.3 g/dL (3.4-5.0); Bilirubin, Total 0.5 mg/dL (0.1-1.0); Bun/Creatinine Ratio 23.3 (12.0-20.0); Calcium, Blood 9.2 mg/dL (8.5-10.1); Creatinine, Blood 0.69 mg/dL (0.40-1.00); Globulin, Blood 3.2 g/dL (2.2-4.0); Potassium, Blood 4.4 mmol/L (3.5-5.5); Total Protein, Blood 6.5 g/dL (6.4-8.2)
[2024-12-11 02:07] VITALS: BP 156/80
== END 2024-12-11 02:07 | disposition home or self-care (01) ==
LOC: ER 23:30
PROVIDERS: Emergency Medicine
DX: I10 Essential (primary) hypertension (principal); E78.5 Hyperlipidemia, unspecified; K21.9 Gastro-esophageal reflux disease without esophagitis; I69.354 Hemiplegia and hemiparesis following cerebral infarction affecting left non-dominant side; F41.9 Anxiety disorder, unspecified; Z79.82 Long term (current) use of aspirin; Z79.01 Long term (current) use of anticoagulants; Z79.899 Other long term (current) drug therapy
CPT/HCPCS: 71045; 80053; 83880; 84484; 85025; 93005; 93010; 99284-25; A9270

== ENCOUNTER 2025-01-18 12:22 | Inpatient (IN) | payer OTHER ==
[~2025-01-18] VITALS: Ht 162.6 cm; Wt 68.5 kg
[2025-01-18] MEDS ORDERED: NS 1,000 ML IV SCH ×2 (12:30→15:05)
[2025-01-18 12:39] LABS: BASOPHILS ABSOLUTE AUTO 0.03 K/mm3 (0.00-0.23); BASOPHILS PERCENT AUTO 1 % (0-2); EOSINOPHILS ABSOLUTE AUTO 0.32 K/mm3 (0.00-0.68); EOSINOPHILS PERCENT AUTO 6 % (0-6); Hematocrit 30.2 % (33.0-51.0); IMMATURE GRAN ABSOLUTE AUTO 0.02 K/mm3 (0.00-0.10); IMMATURE GRAN PERCENT AUTO 0 % (0-1); LYMPHOCYTES ABSOLUTE AUTO 1.57 K/mm3 (0.84-5.20); LYMPHOCYTES PERCENT AUTO 27 % (21-46); MONOCYTES ABSOLUTE AUTO 0.55 K/mm3 (0.16-1.47); MONOCYTES PERCENT AUTO 10 % (4-13); Mean Corpuscular HGB 30.1 pg (26.0-34.0); Mean Corpuscular HGB Conc 33.1 g/dL (31.5-36.5); Mean Corpuscular Volume 91 fL (80-100); NEUTROPHILS ABSOLUTE AUTO 3.33 K/mm3 (1.96-9.15); NEUTROPHILS PERCENT AUTO 57 % (41-73); Platelet Count 283 K/mm3 (150-400); RDW Coefficient Variation 13.9 % (11.7-14.2); RDW Standard Deviation 46.9 fL (35.1-46.3); Red Blood Cell Count 3.32 M/mm3 (3.80-5.20); White Blood Cell Count 5.82 K/mm3 (4.00-11.30)
[2025-01-18 13:00] LABS: Albumin, Blood 3.3 g/dL (3.4-5.0); Albumin/Globulin Ratio 1.1 (0.8-1.8); Bilirubin, Total 0.4 mg/dL (0.1-1.0); Bun/Creatinine Ratio 10.8 (12.0-20.0); Calcium, Blood 9.1 mg/dL (8.5-10.1); Creatinine, Blood 0.93 mg/dL (0.40-1.00); Globulin, Blood 2.9 g/dL (2.2-4.0); Potassium, Blood 3.9 mmol/L (3.5-5.5); Total Protein, Blood 6.2 g/dL (6.4-8.2)
[2025-01-18] MEDS ORDERED: FURO20 PO (13:06)
[2025-01-18] MEDS ORDERED: CEPH250A PO (13:07)
[2025-01-18] MEDS ORDERED: POTCHL20ER PO (13:07)
[2025-01-18] MEDS ORDERED: Ondansetron HCl 2 MG / ML 2ML Vial IV ONE (13:20)
[2025-01-18] MEDS ORDERED: Diltiazem HCl 5 MG / ML 5ML Vial IV ONE (14:15)
[2025-01-18] MEDS ORDERED: Acetaminophen 325 MG TABLET PO ONE (14:50)
[2025-01-18 16:34] VITALS: BP 112/64
[2025-01-18 17:11] VITALS: BP 115/79
--- NOTE | 2025-01-18 17:36 | NUR ---
ARRIVAL NOTE: PT ARRIVES TO UNIT AT APPROX 1613. SHE IS TRANSFERED FROM [facility] VIA [facility]. PT ALERT MOANING AND CRYING TO SELF. PT RESPONDS APPROPRIATELY TO QUESTIONS BUT IS UNABLE TO EXPRESS WHY SHE IS CRYING. PT ARRIVED TO UNIT WITH HOME GARCIA, GARCIA WAS REPLACED AND UA SENT TO LAB. SHE IS IN AFIB WITH RATES IN THE 1TEENS TOUCHING 130S. SOFTWARE DEVELOPMENT ADVISOR REPORTS FREQUENT RUNS OF VTACH. NOTIFIED, AWAITING ORDERS FOR AMIO DRIP. SHE IS ON RA WITH NO REPORTS OF SOB. ON ARRIVAL HER NIH SCORE WAS 3. FAMILY UPDATED ON PLAN OF CARE. CALL LIGHT IN REACH
[2025-01-18 17:39] LABS: Source, Urine Foley catheter
[2025-01-18 18:03] LABS: Appearance, Urine Clear (Clear); Bilirubin, Urine Neg (Neg); Blood, Urine Neg (Neg); Glucose Qualitative, Urine Neg (Neg); Ketones, Urine Neg (Neg); Leukocyte Esterase, Urine Neg (Neg); Nitrite, Urine Neg (Neg); Protein, Urine 1+ (Neg); Urobilinogen, Urine NORM (Normal)
[2025-01-18 18:17] LABS: Color, Urine No Color (P-Yellow)
[2025-01-18 19:40] VITALS: BP 94/50
[2025-01-18 19:53] VITALS: BP 108/56
[2025-01-18] MEDS ORDERED: Apixaban 5 MG Tab PO SCH (21:00)
[2025-01-18 22:32] VITALS: BP 96/60
--- NOTE | 2025-01-18 22:44 | NUR ---
NOTIFED THIS RN NOTIFED BY BLUEPRINT ENGINEER OF PT HAVING 2.5 SECOND PAUSE, THIS RN ASSESSED PT, VSS, PT ASWERING QUESTIONS APPRORPATELY, DENIES DIZZINESS/LIGHTHEADNESS/ CHEST PAIN AND PRESSURE. DR. BARNES NOTIFED BY THIS RN OF ABOVE AND PATIENTS ADMITTING DX AND CURRENT INFUSION OF AMIODERONE. NO NEW ORDERS AT THIS TIME, COMMUNICATED TO THIS RN THAT THEY WILL LOOK OVER THE PATIENTS CHART AND MAKE ANY CHANGES KNOWN.
[2025-01-18 23:49] VITALS: BP 106/75
[2025-01-19 03:04] VITALS: BP 113/68
[2025-01-19 04:55] LABS: BASOPHILS ABSOLUTE AUTO 0.02 K/mm3 (0.00-0.23); BASOPHILS PERCENT AUTO 0 % (0-2); EOSINOPHILS ABSOLUTE AUTO 0.22 K/mm3 (0.00-0.68); EOSINOPHILS PERCENT AUTO 4 % (0-6); Hematocrit 30.3 % (33.0-51.0); Hemoglobin 9.9 g/dL (11.5-16.0); IMMATURE GRAN ABSOLUTE AUTO 0.02 K/mm3 (0.00-0.10); IMMATURE GRAN PERCENT AUTO 0 % (0-1); LYMPHOCYTES ABSOLUTE AUTO 1.21 K/mm3 (0.84-5.20); LYMPHOCYTES PERCENT AUTO 20 % (21-46); MONOCYTES ABSOLUTE AUTO 0.57 K/mm3 (0.16-1.47); MONOCYTES PERCENT AUTO 9 % (4-13); Mean Corpuscular HGB 29.6 pg (26.0-34.0); Mean Corpuscular HGB Conc 32.7 g/dL (31.5-36.5); Mean Corpuscular Volume 90 fL (80-100); Mean Platelet Volume 10.2 fL (9.1-12.4); NEUTROPHILS ABSOLUTE AUTO 4.12 K/mm3 (1.96-9.15); NEUTROPHILS PERCENT AUTO 67 % (41-73); Platelet Count 257 K/mm3 (150-400); RDW Coefficient Variation 13.6 % (11.7-14.2); Red Blood Cell Count 3.35 M/mm3 (3.80-5.20); White Blood Cell Count 6.16 K/mm3 (4.00-11.30)
[2025-01-19 05:21] LABS: Albumin, Blood 2.7 g/dL (3.4-5.0); Bilirubin, Total 0.4 mg/dL (0.1-1.0); Bun/Creatinine Ratio 11.8 (12.0-20.0); Calcium, Blood 8.5 mg/dL (8.5-10.1); Creatinine, Blood 0.85 mg/dL (0.40-1.00); Globulin, Blood 2.7 g/dL (2.2-4.0); Potassium, Blood 3.5 mmol/L (3.5-5.5); Total Protein, Blood 5.4 g/dL (6.4-8.2)
--- NOTE | 2025-01-19 06:23 | NUR ---
SHIFT SUMMARY PT IS A&O X3-4/ BECAME SLIGHTLY MORE CONFUSED ABOUT THE YEAR LATER IN THE NIGHT/AT THE BEGINNING OF THE SHIFT PT REPORTED THAT SHE DOES BECOME CONFUSED AT NIGHT AND WANDERS , ABLE TO MAKE NEEDS KNOWN, MOVING ALL EXTREMITIES WITH PURPOSE/ LEFT SIDED DEFICITS-HX STROKE, OBEYS COMMANDS, Q2 REPOSITIONING BY MEDICAL STAFF SPO2 GREATER 90% ON RA, LUNGS SOUND CLEAR T/O, PT DENIES SOB WHILE AT REST. CONTINUOUS TELE MONITORING, AFIB 70-90 S, PULSES PRESENT T/O, CAP REFILL WNL, PT DENEIS CHEST P/P T/O THIS SHIFT, DID HAVE A 2.5 SECOND PAUSE THIS SHIFT/DR BARNES AWARE. BOWEL TONES PRESENT IN ALL 4Q, PT DENIES FEELINGS OF NAUSEA OR CONSTIPATION, PT NPO AT THIS TIME/ REPORTED TO HAVE CHOCKED ON FOOD WHILE IN THE ED. CHRONIC GARCIA IS SECURE/PATENT/DRAINING TO GRAVITY, URINE YELLOW IN COLOR BED LOWEST POSITION, CALL LIGHT IN REACH, AWAITING TO GIVE REPORT TO ONCOMING RN.
[2025-01-19 07:51] VITALS: BP 123/70
[2025-01-19] MEDS ORDERED: Atorvastatin 10 MG Tab PO SCH (09:00)
[2025-01-19] MEDS ORDERED: Clopidogrel Bisulfate 75 MG Tab PO SCH (09:00)
[2025-01-19] MEDS ORDERED: Furosemide 20 MG Tab PO SCH (09:00)
[2025-01-19] MEDS ORDERED: Metoprolol Succinate 25 MG TABCR PO SCH ×2 (09:00)
[2025-01-19] MEDS ORDERED: Hyaluronidase 150 UNIT/ML Vial IV ONE (10:15)
[2025-01-19 11:37] VITALS: BP 129/62
[2025-01-19 16:02] VITALS: BP 130/77
--- NOTE | 2025-01-19 17:32 | NUR ---
SHIFT NOTE: PT A/OX3 ABLE TO MAKE HER NEEDS KNOWN. SHE DOES NOT USE THE CALL LIGHT BUT WILL CALL OUT WHEN SHE NEEDS ASSISTANCE. SHE REMAINS IN AFIB WITH SEVERAL RUNS OF UNSUSTAINED VTACH T/O DAY UNSYMPTOMATIC. SHE DENIES ALL CHEST PAIN/PRESSURE/PALP. SHE IS ON RA WITH NO REPORTS OF SOB. HER GARCIA IS DRAINING CLEAR YELLOW URINE TO GRAVITY. SHE IS OOB WITH 1P ASSISTANCE WITH FWW. HER AMIO INFILTRATED HER LEFT AC. MEDICATED PER EMAR AND PIV REMOVED. CARE CONTINUES
[2025-01-19] MEDS ORDERED: Amiodarone HCl 200 MG Tab PO SCH (19:00)
[2025-01-19 19:22] VITALS: BP 117/61
[2025-01-19 23:58] VITALS: BP 102/61
[2025-01-20 03:36] VITALS: BP 102/63
[2025-01-20 04:27] LABS: BASOPHILS ABSOLUTE AUTO 0.01 K/mm3 (0.00-0.23); BASOPHILS PERCENT AUTO 0 % (0-2); EOSINOPHILS ABSOLUTE AUTO 0.21 K/mm3 (0.00-0.68); EOSINOPHILS PERCENT AUTO 3 % (0-6); Hematocrit 33.7 % (33.0-51.0); IMMATURE GRAN ABSOLUTE AUTO 0.04 K/mm3 (0.00-0.10); IMMATURE GRAN PERCENT AUTO 1 % (0-1); LYMPHOCYTES ABSOLUTE AUTO 1.21 K/mm3 (0.84-5.20); LYMPHOCYTES PERCENT AUTO 14 % (21-46); MONOCYTES ABSOLUTE AUTO 0.66 K/mm3 (0.16-1.47); MONOCYTES PERCENT AUTO 8 % (4-13); Mean Corpuscular HGB 29.6 pg (26.0-34.0); Mean Corpuscular HGB Conc 32.6 g/dL (31.5-36.5); Mean Corpuscular Volume 91 fL (80-100); Mean Platelet Volume 10.4 fL (9.1-12.4); NEUTROPHILS ABSOLUTE AUTO 6.35 K/mm3 (1.96-9.15); NEUTROPHILS PERCENT AUTO 75 % (41-73); Platelet Count 289 K/mm3 (150-400); RDW Coefficient Variation 14.1 % (11.7-14.2); RDW Standard Deviation 47.2 fL (35.1-46.3); Red Blood Cell Count 3.72 M/mm3 (3.80-5.20); White Blood Cell Count 8.48 K/mm3 (4.00-11.30)
[2025-01-20 04:49] LABS: Calcium, Blood 8.7 mg/dL (8.5-10.1); Potassium, Blood 3.4 mmol/L (3.5-5.5)
--- NOTE | 2025-01-20 05:32 | NUR ---
SHIFT SUMMARY PT IS A&O X4, CAN BECOME AGGITATED AT TIMES BUT REMAINS COOPERATIVE WITH CARE, ABLE TO MAKE NEEDS KNOWN, MOVING ALL EXTREMITIES WITH PURPOSE/ MILD LEFT SIDED DEFICITS-HX STROKE, OBEYS COMMANDS, ABLE TO AMBULATED 1 PERSON ASSIT WITH FWW. SPO2 GREATER 90% ON RA, LUNGS SOUND CLEAR T/O, PT DENIES SOB WHILE AT REST. CONTINUOUS TELE MONITORING, SINUS 70-80 S, PULSES PRESENT T/O, CAP REFILL WNL, PT DENEIS CHEST P/P T/O THIS SHIFT, AMIODARONE COMPLETED THE BEGINNING OF THIS SHIFT AND PT TRANISTIOED TO PO AMIODARONE. BOWEL TONES PRESENT IN ALL 4Q, PT DENIES FEELINGS OF NAUSEA OR CONSTIPATION, PT UNHAPPY ABOUT NOT HAVING SALT WITH HER MEALS / EDUCATED PT ON HEART HEALTHY DIET, PT ALSO UNHAPPY ABOUT FOOD NOT BEING CUT UP. CHRONIC GARCIA IS SECURE/PATENT/DRAINING TO GRAVITY, URINE YELLOW IN COLOR BED LOWEST POSITION, CALL LIGHT IN REACH, AWAITING TO GIVE REPORT TO ONCOMING RN.
[2025-01-20] MEDS ORDERED: Potassium Chloride 20 MEQ TabCR PO ONE ×2 (06:00→13:00)
[2025-01-20 08:27] VITALS: BP 119/63
--- NOTE | 2025-01-20 09:00 | NUR ---
ASSUMPTION OF CARE: PATIENT IS ALERT AND ORIENTED X 3-4 ABLE TO MAKE NEEDS KNOWN, PLEASANT AND COOPERATIVE, SOES STRUGGLE WITH MEDICATION AND HISTORY AT TIMES, DENIES CHEST PAIN PRESSURE OR SOB AT REST. VSS. BLE EDEMA 2+. CHRONIC GARCIA FOLLOWS OUTPATIENT UROLOGY. SITTING UPRIGHT IN RECLINER, DISCUSS DEEP BREATHING AND COUGH. NO ACUTE CONCERNS NOTED. REDNESS AND TENDERNESS OF LEFT AC LOWER UPPER ARM STILL PRESENT, APPEARS TO BE IMPROVING.
[2025-01-20] MEDS ORDERED: Potassium Chloride 10 Meq Tablet SA PO ONE (09:15)
[2025-01-20 11:34] VITALS: BP 117/58
[2025-01-20] MEDS ORDERED: Amiodarone HCl200 MG PO ×2 (12:38→12:39)
[2025-01-20] MEDS ORDERED: ELIQUIS5 M2 PO (12:43)
[2025-01-20] MEDS ORDERED: JARDIANCE10 MG PO (12:57)
[2025-01-20] MEDS ORDERED: Furosemide 10 MG/ML 4ML Vial IV ONE (13:00)
[2025-01-20] MEDS ORDERED: Empagliflozin 10 MG TAB PO SCH (14:00)
[2025-01-20] MEDS ORDERED: Furosemide 10 MG/ML 4ML Vial IV SCH (14:00)
[2025-01-20 14:51] VITALS: BP 122/62
[2025-01-20] MEDS ORDERED: Amiodarone HCl 200 MG Tab PO SCH (15:00)
[2025-01-20] MEDS ORDERED: Apixaban 5 MG Tab PO SCH (15:00)
--- NOTE | 2025-01-20 15:03 | NUR ---
DISCHARGE SUMMARY: PATIENT REMAINS UNCHANGED FROM ASSUMPTION DISCHARGING WITH SON WITH PLAN TO GO TO [place] TOMORROW AM DISCHARGE INSTRUCTIONS UNDERSTOOD WITH NO QUESTIONS OR CONCERNS, DENIES CHEST PAIN PRESSURE OR SOB AT REST. VSSAnn GOOD RECIEVED INCREASED DOSE OD DIURETIC AND JARDIANCE. NO ACUTE CONCERNS FROM THIS INFORMATION TECHNOLOGY AUDIT MANAGER OR PATIENT AT TIME OF DISCHARGE. IV AND TELE REMOVED BY PCT STAFF. WHELED OUT BY PCT STAFF TO SON JUMANA.
== END 2025-01-20 15:12 | disposition home or self-care (01) | DRG 309 ==
LOC: ER 12:22 → PCU 12:23
PROVIDERS: Emergency Medicine; ADMIT Family Medicine
DX: I48.91 Unspecified atrial fibrillation (principal); I50.30 Unspecified diastolic (congestive) heart failure; I69.354 Hemiplegia and hemiparesis following cerebral infarction affecting left non-dominant side; I11.0 Hypertensive heart disease with heart failure; I95.9 Hypotension, unspecified; E78.5 Hyperlipidemia, unspecified; D64.9 Anemia, unspecified; Z66 Do not resuscitate; Z79.82 Long term (current) use of aspirin; Z79.02 Long term (current) use of antithrombotics/antiplatelets
CPT/HCPCS: 36415; 51702; 71045; 80048; 80053; 82947; 83735; 83880; 84443; 84484; 85025; 93005; 93010; 93306; 96361; 96365; 96374; 96375; 96376; 99285-25; A9270; G0378; J0282; J1938; J2405; J3470; J7030; J7060

== ENCOUNTER → 2025-02-05 | Outpatient (CLI) | payer OTHER ==
[~2025-02-05] MED LIST changes: +Amiodarone HCl200 MG PO; +CEPH250A PO; +ELIQUIS5 M2 PO; +FURO20 PO; +JARDIANCE10 MG PO; +POTCHL20ER PO
[2025-02-05 14:56] LABS: Source, Urine Foley catheter
[2025-02-05 18:06] LABS: Bilirubin, Urine Neg (Neg); Glucose Qualitative, Urine Neg (Neg); Ketones, Urine Neg (Neg); Leukocyte Esterase, Urine 1+ (Neg); Protein, Urine Neg (Neg); Specific Gravity, Urine 1.015 (1.003-1.022); Urobilinogen, Urine NORM (Normal)
[2025-02-05 18:17] LABS: Color, Urine Pale Yellow (P-Yellow)
[2025-02-05 18:18] LABS: Red Blood Cells, Urine 0-2 /hpf (0-2); Yeast/Fungi Urine Few /hpf
== END | disposition home or self-care (01) ==
LOC: LAB SHORT 14:51 → LAB 14:51
PROVIDERS: Internal Medicine
DX: N39.0 Urinary tract infection, site not specified (principal)
CPT/HCPCS: 81001; 87077; 87086; 87186

== ENCOUNTER → 2025-04-03 | Outpatient (CLI) | payer OTHER ==
[2025-04-03 14:48] LABS: Source, Urine Clean Catch
[2025-04-03 15:30] LABS: Bilirubin, Urine Neg (Neg); Glucose Qualitative, Urine Neg (Neg); Ketones, Urine Neg (Neg); Leukocyte Esterase, Urine 1+ (Neg); Protein, Urine Neg (Neg); Specific Gravity, Urine 1.015 (1.003-1.022); Urobilinogen, Urine NORM (Normal)
[2025-04-03 15:50] LABS: Color, Urine Pale Yellow (P-Yellow)
[2025-04-03 15:52] LABS: Yeast/Fungi Urine Few /hpf
== END ==
LOC: LAB 12:00 → LAB SHORT 12:00
PROVIDERS: Internal Medicine
DX: N39.0 Urinary tract infection, site not specified (principal)
CPT/HCPCS: 81001; 87077; 87086; 87186

== ENCOUNTER 2025-06-28 22:51 | Emergency (ER) | payer OTHER ==
[~2025-06-28] VITALS: Ht 162.6 cm; Wt 68.0 kg
[~2025-06-28 22:51] MED LIST changes: +AMINOFEN325 MG PO; +CLIMARA1 EACH TOP; +CLOBETASOL EMOL15 G1 EXT; +Keflex250 MG PO; +LOPE2C PO; +PACERONE100 M1 PO; +[UNRECOGNIZED DRUG - CODE] PO; +[UNRECOGNIZED DRUG - OTHER] PR
[2025-06-29 02:23] LABS: Source, Urine Suprapubic Cath
[2025-06-29 02:48] LABS: Bilirubin, Urine Neg (Neg); Glucose Qualitative, Urine Neg (Neg); Ketones, Urine Neg (Neg); Leukocyte Esterase, Urine 2+ (Neg); Protein, Urine 2+ (Neg); Specific Gravity, Urine 1.005 (1.003-1.022); Urobilinogen, Urine NORM (Normal)
[2025-06-29 02:50] VITALS: BP 135/92
[2025-06-29 03:07] LABS: Color, Urine Yellow (P-Yellow)
[2025-06-29 03:08] LABS: Red Blood Cells, Urine 50-100 /hpf (0-2); White Blood Cells, Urine 0-2 /hpf (0-5)
== END 2025-06-29 03:20 | disposition home or self-care (01) ==
LOC: ER 22:51
PROVIDERS: Emergency Medicine
DX: R31.9 Hematuria, unspecified (principal); I11.0 Hypertensive heart disease with heart failure; I50.30 Unspecified diastolic (congestive) heart failure; E78.5 Hyperlipidemia, unspecified; K21.9 Gastro-esophageal reflux disease without esophagitis; Z86.73 Personal history of transient ischemic attack (TIA), and cerebral infarction without residual deficits; Z79.899 Other long term (current) drug therapy
CPT/HCPCS: 81001; 87086; 99283